=== PATIENT | female | born 1955 | race Caucasian/White ===

== ENCOUNTER → 2016-09-09 | Outpatient (CLI) | payer OTHER ==
[2016-09-09 11:05] LABS: Basophils # (A) 0.1 k/uL (0-0.2); Basophils % (A) 1 %; CH 30.3; CHCM 34.5; Eosinophils # (A) 0.3 k/uL (0-0.7); Eosinophils % (A) 4 %; HCT 42.2 % (34.0-46.0); HDW 2.59; HGB 14.1 gm/dL (11.4-16.0); Luc # (Auto) 0.18; Luc % (Auto) 3; Lymphocytes # (A) 2.4 k/uL (1.0-4.8); Lymphocytes % (A) 36 %; MCH 29.5 pg (25.0-35.0); MCHC 33.3 g/dL (31.0-37.0); MCV 88.5 fL (80.0-100.0); Mean Platelet Volume 6.9; Monocytes # (A) 0.4 k/uL (0-1.0); Monocytes % (A) 6 %; Neutrophils # (A) 3.3 k/uL (1.3-7.7); Neutrophils % (A) 50 %; RBC 4.77 m/uL (3.80-5.40); RDW 13.5 % (11.5-15.5); WBC 6.6 k/uL (3.8-10.6); WBC (Perox) 6.61
[2016-09-09 11:26] LABS: ALT 23 U/L (9-52); AST 21 U/L (14-36); Alkaline Phosphatase 72 U/L (38-126); Anion Gap 7 mmol/L; Blood Urea Nitrogen 17 mg/dL (7-17); Calcium 9.3 mg/dL (8.4-10.2); Carbon Dioxide 27 mmol/L (22-30); Chloride 108 mmol/L (98-107); Cholesterol 217 mg/dL (<200); Glucose 96 mg/dL (74-99); HDL Cholesterol 50 mg/dL (40-60); Non-African American GFR(MDRD) >60 (>60 ml/min/1.73 sqM); Potassium 3.8 mmol/L (3.5-5.1); Sodium 142 mmol/L (137-145); Total Bilirubin 0.4 mg/dL (0.2-1.3); Total Protein 6.7 g/dL (6.3-8.2); Triglycerides 66 mg/dL (<150)
== END | disposition home or self-care (01) ==
LOC: LABWHC1 10:19
PROVIDERS: ATTEND Family Medicine
DX: J01.90 Acute sinusitis, unspecified (principal); E03.9 Hypothyroidism, unspecified
CPT/HCPCS: 36415; 80053; 80061; 84439; 84443; 84481; 85025

== ENCOUNTER → 2016-11-21 | Outpatient (CLI) | payer OTHER ==
--- NOTE | 2016-11-21 08:11 | CT ---
EXAMINATION TYPE: CT abdomen pelvis wo con DATE OF EXAM: 11/21/2016 COMPARISON: Previous study dated 02/16/2015. HISTORY: Rt flank pain, UTI CT DLP: 946 mGycm Automated exposure control for dose reduction was used. FINDINGS: There are multiple, stable, noncalcified pulmonary nodules at the lung bases. Stability ove r 2 years suggests a benign etiology. There is no pleural or pericardial fluid. The heart is not enla rged. There is a small hiatal hernia. Within the abdomen, the liver, spleen and gallbladder are normal. There is fullness in the adrenal gl ands to there is no adrenal mass. There is no evidence of hydronephrosis or nephrolithiasis. The pancreas is unremarkable. There is mild atheromatous calcification of the aorta and iliac vessels. There is no significant retr operitoneal, iliac or inguinal adenopathy. There is mild bladder wall thickening. The uterus is unremarkable. The ovaries are not visualized with certainty. There is no significant diverticular change and there is no radiographic evidence of diverticulitis. The appendix is normal. Small bowel loops are normal. There is no free fluid and no free air identified. There are degenerative changes in the hips. There is facet arthropathy in the lower lumbar facets. Th ere is minimal hypertrophic spondylosis in the lower dorsal spine. No bony destructive lesion is seen . IMPRESSION: 1. SMALL HIATAL HERNIA. 2. MULTIPLE, STABLE PULMONARY NODULES. 3. MILD DEGENERATIVE CHANGE IN THE HIPS AND SPINE. 4. MILD THICKENING OF THE BLADDER WALL.
== END | disposition home or self-care (01) ==
LOC: RADCTMAIN 06:52
PROVIDERS: ATTEND Family Medicine
DX: K44.9 Diaphragmatic hernia without obstruction or gangrene (principal); K82.8 Other specified diseases of gallbladder; Z88.2 Allergy status to sulfonamides; Z88.1 Allergy status to other antibiotic agents; Z88.8 Allergy status to other drugs, medicaments and biological substances
CPT/HCPCS: 74176

== ENCOUNTER → 2018-08-05 | Outpatient (CLI) | payer OTHER ==
[2018-08-05 13:36] LABS: Basophils # (A) 0.1 k/uL (0-0.2); Basophils % (A) 1 %; Eosinophils # (A) 0.4 k/uL (0-0.7); Eosinophils % (A) 4 %; HCT 43.9 % (34.0-46.0); HGB 14.5 gm/dL (11.4-16.0); Lymphocytes # (A) 2.3 k/uL (1.0-4.8); Lymphocytes % (A) 25 %; MCH 29.8 pg (25.0-35.0); MCHC 33.1 g/dL (31.0-37.0); Mean Platelet Volume 7.1; Monocytes # (A) 0.4 k/uL (0-1.0); Monocytes % (A) 4 %; Neutrophils # (A) 6.1 k/uL (1.3-7.7); Neutrophils % (A) 65 %; Platelet Count 336 k/uL (150-450); RBC 4.88 m/uL (3.80-5.40); RDW 15.3 % (11.5-15.5); WBC 9.4 k/uL (3.8-10.6)
[2018-08-05 20:58] LABS: Albumin 4.4 g/dL (3.80-4.90); Albumin/Globulin Ratio 1.83 (1.60-3.17); Anion Gap 8.9 mmol/L (4.00-12.00); Calcium 9.4 mg/dL (8.7-10.3); Carbon Dioxide 29.1 mmol/L (21.6-31.8); Globulin 2.4 g/dL (1.6-3.3); LDL Cholesterol,Calculated 179.2 mg/dL (0.0-131.0); Potassium 4.5 mmol/L (3.5-5.5); Total Bilirubin 0.3 mg/dL (0.2-1.2); Total Protein 6.8 g/dL (6.2-8.2); VLDL Calculation 27.8 mg/dL (5.00-40.00)
[2018-08-05 21:07] LABS: T4, Free (Free Thyroxine) 1.3 ng/dL (0.80-1.80)
== END | disposition home or self-care (01) ==
LOC: LABWHC1 13:12
PROVIDERS: ATTEND Family Medicine
DX: Z00.00 Encounter for general adult medical examination without abnormal findings (principal); E03.9 Hypothyroidism, unspecified
CPT/HCPCS: 36415; 80053; 80061; 84439; 84443; 85025

== ENCOUNTER → 2018-11-17 | Outpatient (CLI) | payer OTHER ==
--- NOTE | 2018-11-17 11:54 | XR ---
EXAMINATION TYPE: XR elbow complete LT, XR forearm LT, XR wrist complete LT DATE OF EXAM: 11/17/2018 CLINICAL HISTORY: Fall injury 3 days ago with pain TECHNIQUE: Frontal, lateral and oblique images of the left wrist and elbow are obtained. Fourth scap hoid view left wrist. 2 views left forearm. COMPARISON: None FINDINGS: There is no acute fracture/dislocation evident in the left elbow. No abnormal fat pad sig ns are seen. The overlying soft tissue appears unremarkable. Images of the left forearm show no acute fracture or dislocation. Overlying soft tissue is unremarkab le. Images of the left wrist show no acute fracture or dislocation. Mild to moderate narrowing at base of first metacarpal with mild spurring is present. Overlying soft tissue is unremarkable. IMPRESSION: There is no acute fracture or dislocation in the left wrist, forearm, or elbow.
--- NOTE | 2018-11-17 11:55 | XR ---
EXAMINATION TYPE: XR femur LT DATE OF EXAM: 11/17/2018 CLINICAL HISTORY: Fall injury on Thursday with pain. TECHNIQUE: Two views of the left femur are obtained. COMPARISON: None FINDINGS: There is no acute fracture or dislocation seen in the left femur. Sclerotic focus distal l eft femur favors bone infarct. Mild to moderate tricompartment joint space loss and spurring left kne e is seen. Left hip joint appears within normal limits. Partial visualization of surgical change left tibia is noted. Overlying soft tissue is unremarkable. IMPRESSION: There is no acute fracture or dislocation in the left femur.
== END | disposition home or self-care (01) ==
LOC: RADXRMAIN 11:01
PROVIDERS: ATTEND Emergency Medicine
DX: S70.12XA Contusion of left thigh, initial encounter (principal); S50.12XA Contusion of left forearm, initial encounter

== ENCOUNTER → 2020-01-06 | Outpatient (CLI) | payer OTHER ==
--- NOTE | 2020-01-09 08:10 | CT ---
EXAMINATION TYPE: CT shoulder RT wo con DATE OF EXAM: 01/06/2020 COMPARISON: None HISTORY: right shoulder pain, no injury CT DLP: 269.[address] of the right shoulder with reconstruction imaging. TECHNIQUE: Unenhanced CT of the right shoulder was performed with bone and soft tissue window setting s submitted in the axial coronal and sagittal planes. At a separate workstation [id number] TR imaging was o btained. FINDINGS: I do not see evidence for fracture or dislocation. No evidence for subacromial impingement as there is a flat acromium. Minimal AC joint arthropathy. Glenohumeral joint space is well-preserve d. No obvious rotator cuff abnormality seen on CT. MRI is much more sensitive and specific to rotat or cuff pathology. No soft tissue masses appreciated. Visualized portions of the right lung demonst rate right apical scarring. IMPRESSION: 1. No significant abnormality of CT of the right shoulder. To exclude internal derangement I do recom mend MRI.
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
== END | disposition home or self-care (01) ==
LOC: RADCTMAIN 16:08
PROVIDERS: ATTEND Family Medicine
DX: M50.321 Other cervical disc degeneration at C4-C5 level (principal); M50.21 Other cervical disc displacement, high cervical region; M25.511 Pain in right shoulder; Z98.1 Arthrodesis status; Z88.6 Allergy status to analgesic agent
CPT/HCPCS: 72125

== ENCOUNTER 2022-07-26 13:51 | Inpatient (IN) | payer BC, MEDICARE ==
[2022-07-26] MEDS ORDERED: ALBUTEROL NEBULIZED 2.5 MG/3 ML INHALATION STA ×2 (14:05→16:19)
[2022-07-26] MEDS ORDERED: IPRATROPIUM 0.5 MG/2.5 ML NEBU INHALATION STA (14:05)
--- NOTE | 2022-07-26 14:06 | ED ---
SOB HPI - General Chief Complaint: Shortness of Breath Stated Complaint: ELIEL Time Seen by Provider: 07/26/22 14:05 Source: patient, RN notes reviewed, old records reviewed Mode of arrival: ambulatory Limitations: no limitations - History of Present Illness Initial Comments: This is a 66-year-old female to the emergency department today. She presents to day for evaluation of shortness of breath positive smoker who does continue to smoke history of COPD, she denies any prior admissions for COPD. Patient states her breathing is getting progressively worse for the plantar she can't do daily activities at home. She has significant short of breath after just taking a few steps. No fevers or chest pain. No significant swelling over lower extremity edema. Symptoms are progressively worsening over the last few days but increasing steroids at home MD Complaint: shortness of breath, cough -: days(s), week(s), month(s), year(s) Radiation: back Severity: severe Severity scale (1-10): 10 Consistency: constant Improves With: rest, bronchodilators, upright position Worsens With: exertion, movement, coughing, inspiration Known History Of: COPD Context: anxiety Associated Symptoms: cough, sputum production Treatments Prior to Arrival: bronchodilator - Related Data Home Medications Medication Instructions Recorded Confirmed Cyclobenzaprine [Flexeril] 10 mg PO HS PRN 02/24/14 07/26/22 Omeprazole [PriLOSEC] 20 mg PO DAILY 02/24/14 07/26/22 hydroCHLOROthiazide [Hydrodiuril] 25 mg PO DAILY 02/24/14 07/26/22 Acetaminophen [Tylenol Arthritis] 650 mg PO Q6H PRN 07/26/22 07/26/22 Albuterol Inhaler [Ventolin Hfa 1 - 2 puff INHALATION RT-Q6H PRN 07/26/22 07/26/22 Inhaler] Fexofenadine HCl [Cristina Allergy] 180 mg PO DAILY 07/26/22 07/26/22 Fluticasone/Umeclidin/Vilanter 1 puff INHALATION RT-DAILY 07/26/22 07/26/22 [Trelegy Ellipta 100-62.5-25] HYDROcodone/APAP 5-325MG [[place] 1 tab PO Q6HR PRN 07/26/22 07/26/22 5-325] Levothyroxine Sodium [Synthroid] 137 mcg PO DAILY 07/26/22 07/26/22 diphenhydrAMINE HCL [Benadryl] 25 mg PO Q6H PRN 07/26/22 07/26/22 predniSONE See Taper PO DIRECTED 07/26/22 07/26/22 Allergies Allergy/AdvReac Type Severity Reaction Status Date / Time erythromycin base Allergy Unknown Verified 02/16/15 02:48 [Erythromycin Base] hydrocodone bitartrate Allergy Itching Verified 07/26/22 16:09 [From Vicodin] hydroxychloroquine Allergy Verified 07/26/22 16:15 [From Plaquenil] ibuprofen [From Motrin] Allergy Verified 07/26/22 16:09 naproxen Allergy Verified 07/26/22 16:09 nitrofurantoin Allergy Rash/Hives Verified 07/26/22 13:57 [From Macrobid] sulfamethoxazole Allergy Rash/Hives Verified 07/26/22 16:09 [From Bactrim] trimethoprim [From Bactrim] Allergy Rash/Hives Verified 07/26/22 16:09 anti-inflamatories Allergy Unknown Uncoded 02/16/15 02:48 Review of Systems ROS Statement: Those systems with pertinent positive or pertinent negative responses have been documented in the HPI. ROS Other: All systems not noted in ROS Statement are negative. Past Medical History Past Medical History: COPD, GERD/Reflux, Hypertension, Thyroid Disorder History of Any Multi-Drug Resistant Organisms: None Reported Past Surgical History: Section, Orthopedic Surgery, Tubal Ligation Additional Past Surgical History / Comment(s): neck surgery C5-C6 Past Psychological History: No Psychological Hx Reported Past Alcohol Use History: Occasional Past Drug Use History: None Reported General Exam Limitations: no limitations General appearance: alert, in no apparent distress, anxious Head exam: Present: atraumatic, normocephalic, normal inspection Eye exam: Present: normal appearance, PERRL, EOMI. Absent: scleral icterus, conjunctival injection, periorbital swelling ENT exam: Present: normal exam, mucous membranes moist Neck exam: Present: normal inspection. Absent: tenderness, meningismus, lymphadenopathy Respiratory exam: Present: normal lung sounds bilaterally, respiratory distress, accessory muscle use, decreased breath sounds, prolonged expiratory. Absent: wheezes, rales, rhonchi, stridor Cardiovascular Exam: Present: normal rhythm, tachycardia, normal heart sounds. Absent: systolic murmur, diastolic murmur, rubs, gallop, clicks GI/Abdominal exam: Present: soft, normal bowel sounds. Absent: distended, tenderness, guarding, rebound, rigid Extremities exam: Present: normal inspection, full ROM, normal capillary refill. Absent: tenderness, pedal edema, joint swelling, calf tenderness Back exam: Present: normal inspection Neurological exam: Present: alert, oriented X3, CN II-XII intact Psychiatric exam: Present: normal affect, normal mood Skin exam: Present: warm, dry, intact, normal color. Absent: rash Course Vital Signs 07/26/22 07/26/22 07/26/22 13:54 14:19 14:23 Temperature 97.3 F L 98.2 F Pulse Rate 120 H 103 H Respiratory 36 H 24 22 Rate Blood Pressure 159/81 173/94 O2 Sat by Pulse 98 97 Oximetry 07/26/22 07/26/22 07/26/22 14:31 14:49 15:00 Temperature Pulse Rate 103 H 112 H 111 H Respiratory 22 Rate Blood Pressure 147/87 O2 Sat by Pulse 95 Oximetry 07/26/22 16:00 Temperature Pulse Rate 101 H Respiratory 18 Rate Blood Pressure 160/92 O2 Sat by Pulse 94 L Oximetry - Reevaluation(s) Reevaluation #1: 07/26/22 16:32 Medical records reviewed Reevaluation #2: 07/26/22 16:32 Patient informed results and questions are answered Reevaluation #3: 07/26/22 16:32 Patient has no improvement here in the ER, states she does do moderately well with rest airway still but any activity even here in the ER causes her oxygenation is a drop in the mid to high 80s Reevaluation #4: 07/26/22 16:32 Was pt. sent in by a medical professional or institution? @ -no patient does present by EMS Did you speak to anyone other than the patient for history? @ -EMS and paitents daughter at beside Did you review nursing and triage notes? @ -agree Were old charts reviewed? @ -prior admissions and ER evaluaions are reviewed Differential Diagnosis? @ -weakness, falls EKG interpreted by me (3pts min.)? @ -no X-rays interpreted by me (1pt min.)? @ -yes CT interpreted by me (1pt min.)? @ -no U/S interpreted by me (1pt. min.)? @ -no What testing was considered but not performed? (CT, X-rays, U/S, labs)? Why? @ -no What meds were considered but not given? Why? @ -no patient with no current complaints Did you discuss the management of the patient with other professionals? @ -no Did you reconcile home meds? @ -no Was smoking cessation discussed for >3mins.? @ -yes Was critical care preformed (if so, how long)? @ -no Were there social determinants of health that impacted care today? How? (Homelessness, low income, unemployed, alcoholism, drug addiction, transportation, low edu. Level, literacy, decrease access to med. care, penitentiary, rehab)? @ -no Was there de-escalation of care discussed even if they declined? (Discuss DNR or withdrawal of care, Hospice)? @ -no What co-morbidities impacted this encounter? (DM, HTN, Smoking, COPD, CAD, Can cer, CVA, Hep., AIDS, mental health diagnosis, sleep apnea, morbid obesity)? @ -smoking, copd Was patient admitted / discharged? @ -admit Undiagnosed new problem with uncertain prognosis? @ -copd exacerbation Drug Therapy requiring intensive monitoring for toxicity (Heparin, Nitro, Insulin, Cardizem)? @ -no Were any procedures done? @ -no Diagnosis/symptom? @ -COPDhypoxia Acute, or Chronic, or Acute on Chronic? @ -acute Uncomplicated (without systemic symptoms) or Complicated (systemic symptoms)? @ -uncompicated Side effects of treatment? @ -none Exacerbation, Progression, or Severe Exacerbation] @ -no Poses a threat to life or bodily function? @ -yes tate w hypoxia Reevaluation #5: 07/26/22 16:35 Differential Dyspnea: Coronary syndrome, arrhythmia, tamponade, asthma, COPD, pulmonary embolism, pneumonia, pneumothorax, pulmonary effusion, anaphylaxis, diabetic ketoacidosis, flailed chest, pulmonary contusion, diaphragmatic rupture, anemia, neuromuscular, this is not meant to be an all-inclusive list. - Consultations Consultation #1: Spoke with admitting physicians agreeable with this patient Cheng who agrees to admit this paitnet Medical Decision Making - Medical Decision Making 66 female to the emergency department for evaluation, patient will be admitted for severe COPD exacerbation with exertional dyspnea and hypoxia. Patient be admitted for pulmonology evaluation and repeated breathing treatments, smoking cessation - Lab Data Result diagrams: 07/26/22 14:14 07/26/22 14:14 Lab Results 07/26/22 07/26/22 07/26/22 Range/Units 14:14 14:14 14:14 WBC 11.3 H (3.8-10.6) k/uL RBC 4.94 (3.80-5.40) m/uL Hgb 15.0 (11.4-16.0) gm/dL Hct 44.4 (34.0-46.0) % MCV 90.0 (80.0-100.0) fL MCH 30.4 (25.0-35.0) pg MCHC 33.7 (31.0-37.0) g/dL RDW 14.9 (11.5-15.5) % Plt Count 439 (150-450) k/uL MPV 7.4 Neutrophils % 77 % Lymphocytes % 15 % Monocytes % 5 % Eosinophils % 2 % Basophils % 0 % Neutrophils # 8.8 H (1.3-7.7) k/uL Lymphocytes # 1.7 (1.0-4.8) k/uL Monocytes # 0.5 (0-1.0) k/uL Eosinophils # 0.2 (0-0.7) k/uL Basophils # 0.0 (0-0.2) k/uL PT 9.5 (9.0-12.0) sec INR 0.9 (<1.2) APTT 22.0 (22.0-30.0) sec Sodium 139 (137-145) mmol/L Potassium 3.7 (3.5-5.1) mmol/L Chloride 101 (98-107) mmol/L Carbon Dioxide 28 (22-30) mmol/L Anion Gap 10 mmol/L BUN 19 H (7-17) mg/dL Creatinine 0.66 (0.52-1.04) mg/dL Est GFR (CKD-EPI)AfAm >90 (>60 ml/min/1.73 sqM) Est GFR (CKD-EPI)NonAf >90 (>60 ml/min/1.73 sqM) Glucose 118 H (74-99) mg/dL Plasma Lactic Acid Kemal (0.7-2.0) mmol/L Calcium 9.7 (8.4-10.2) mg/dL Magnesium 1.6 (1.6-2.3) mg/dL Total Bilirubin 0.4 (0.2-1.3) mg/dL AST 24 (14-36) U/L ALT 28 (4-34) U/L Alkaline Phosphatase 93 (38-126) U/L NT-Pro-B Natriuret Pep pg/mL Total Protein 7.5 (6.3-8.2) g/dL Albumin 4.2 (3.5-5.0) g/dL 07/26/22 07/26/22 Range/Units 14:14 14:14 WBC (3.8-10.6) k/uL RBC (3.80-5.40) m/uL Hgb (11.4-16.0) gm/dL Hct (34.0-46.0) % MCV (80.0-100.0) fL MCH (25.0-35.0) pg MCHC (31.0-37.0) g/dL RDW (11.5-15.5) % Plt Count (150-450) k/uL MPV Neutrophils % % Lymphocytes % % Monocytes % % Eosinophils % % Basophils % % Neutrophils # (1.3-7.7) k/uL Lymphocytes # (1.0-4.8) k/uL Monocytes # (0-1.0) k/uL Eosinophils # (0-0.7) k/uL Basophils # (0-0.2) k/uL PT (9.0-12.0) sec INR (<1.2) APTT (22.0-30.0) sec Sodium (137-145) mmol/L Potassium (3.5-5.1) mmol/L Chloride (98-107) mmol/L Carbon Dioxide (22-30) mmol/L Anion Gap mmol/L BUN (7-17) mg/dL Creatinine (0.52-1.04) mg/dL Est GFR (CKD-EPI)AfAm (>60 ml/min/1.73 sqM) Est GFR (CKD-EPI)NonAf (>60 ml/min/1.73 sqM) Glucose (74-99) mg/dL Plasma Lactic Acid Kem[place] 1.7 (0.7-2.0) mmol/L Calcium (8.4-10.2) mg/dL Magnesium (1.6-2.3) mg/dL Total Bilirubin (0.2-1.3) mg/dL AST (14-36) U/L ALT (4-34) U/L Alkaline Phosphatase (38-126) U/L NT-Pro-B Natriuret Pep 151 pg/mL Total Protein (6.3-8.2) g/dL Albumin (3.5-5.0) g/dL - EKG Data -: EKG Interpreted by Me (EKG is sinus tachycardia 108 MO 148 QRS 90 QTC 377) - Radiology Data Radiology results: report reviewed (Chest x-rays negative for acute disease), image reviewed Critical Care Time Critical Care Time: Yes Total Critical Care Time: 31 Disposition Clinical Impression: Acute exacerbation of chronic obstructive pulmonary disease, Asthma with acute exacerbation, Hypoxia Disposition: ADMITTED IP TO THIS HOSP Condition: Fair Is patient prescribed a controlled substance at d/c from ED?: No Referrals: Faheem Roberts Jr, [Primary Care Provider] - 1-2 days Time of Disposition: 16:20
--- NOTE | 2022-07-26 14:34 | XR ---
EXAMINATION TYPE: XR chest 1V portable DATE OF EXAM: 07/26/2022 COMPARISON: 05/15/2022 HISTORY: Shortness of breath TECHNIQUE: Single frontal view of the chest is obtained. FINDINGS: There is no focal air space opacity, pleural effusion, or pneumothorax seen. The cardiac silhouette size is within normal limits. The osseous structures are intact. IMPRESSION: No acute process.
[2022-07-26 14:40] LABS: Basophils % (A) 0 %; Eosinophils # (A) 0.2 k/uL (0-0.7); Eosinophils % (A) 2 %; HCT 44.4 % (34.0-46.0); Lymphocytes # (A) 1.7 k/uL (1.0-4.8); Lymphocytes % (A) 15 %; MCH 30.4 pg (25.0-35.0); MCHC 33.7 g/dL (31.0-37.0); Mean Platelet Volume 7.4; Monocytes # (A) 0.5 k/uL (0-1.0); Monocytes % (A) 5 %; Neutrophils # (A) 8.8 k/uL (1.3-7.7); Neutrophils % (A) 77 %; Platelet Count 439 k/uL (150-450); RBC 4.94 m/uL (3.80-5.40); RDW 14.9 % (11.5-15.5); WBC 11.3 k/uL (3.8-10.6)
[2022-07-26 14:53] LABS: ALT 28 U/L (4-34); AST 24 U/L (14-36); African American GFR (CKD) >90 (>60 ml/min/1.73 sqM); Albumin 4.2 g/dL (3.5-5.0); Alkaline Phosphatase 93 U/L (38-126); Anion Gap 10 mmol/L; Blood Urea Nitrogen 19 mg/dL (7-17); Calcium 9.7 mg/dL (8.4-10.2); Carbon Dioxide 28 mmol/L (22-30); Chloride 101 mmol/L (98-107); Glucose 118 mg/dL (74-99); Magnesium 1.6 mg/dL (1.6-2.3); Non-African American GFR(CKD) >90 (>60 ml/min/1.73 sqM); Potassium 3.7 mmol/L (3.5-5.1); Sodium 139 mmol/L (137-145); Total Bilirubin 0.4 mg/dL (0.2-1.3); Total Protein 7.5 g/dL (6.3-8.2)
[2022-07-26 14:55] LABS: INR 0.9 (<1.2); Prothrombin Time 9.5 sec (9.0-12.0)
[2022-07-26] MEDS ORDERED: NALOXONE 0.4 MG/ML 1 ML VIAL IVP PRN (15:56)
[2022-07-26] MEDS ORDERED: ACETAMINOPHEN TAB 325 MG TAB PO PRN (16:16)
[2022-07-26] MEDS ORDERED: methylPREDNISolone SOD SUCCI 125 MG/2 ML VIAL IV STA (16:16)
[2022-07-26] MEDS ORDERED: HYDROcodone/APAP 5-325MG 1 EACH TAB PO PRN (18:46)
[2022-07-26] MEDS: ALBUTEROL NEBULIZED 2.5 MG/3 ML INHALATION SCH (20:18)
[2022-07-26] MEDS: methylPREDNISolone SOD SUCCI 125 MG/2 ML VIAL IV SCH (23:32)
[2022-07-27] MEDS: CYCLOBENZAPRINE 10 MG TAB PO PRN ×2 (03:09→22:20)
[2022-07-27] MEDS: methylPREDNISolone SOD SUCCI 125 MG/2 ML VIAL IV SCH ×3 (05:53→18:03)
[2022-07-27] MEDS: LEVOTHYROXINE 137 MCG TAB PO SCH (05:54)
--- NOTE | 2022-07-27 07:20 | XR ---
EXAMINATION TYPE: XR chest 2V DATE OF EXAM: 07/27/2022 COMPARISON: Chest x-ray from yesterday HISTORY: Hypoxia. TECHNIQUE: Frontal and lateral views of the chest are obtained. FINDINGS: There is mild chronic parenchymal change without suspicious focal air space opacity, pleur al effusion, or pneumothorax seen. The cardiac silhouette size is stable and within normal limits. A nterior fusion plate in the lower cervical spine is redemonstrated. IMPRESSION: No acute cardiopulmonary process. No significant change from one day earlier.
[2022-07-27] MEDS: ALBUTEROL NEBULIZED 2.5 MG/3 ML INHALATION SCH ×4 (07:38→20:24)
[2022-07-27] MEDS: IPRATROPIUM 0.5 MG/2.5 ML NEBU INHALATION SCH ×4 (07:39→20:24)
[2022-07-27] MEDS ORDERED: SYMBICORT 80-4.5 MCG INHALER INHALATION SCH (08:00)
[2022-07-27] MEDS: hydroCHLOROthiazide 25 MG TAB PO SCH (08:45)
[2022-07-27] MEDS: PANTOPRAZOLE 40 MG TABLET PO SCH (08:45)
[2022-07-27 09:20] LABS: Basophils # (A) 0.01 X 10*3/uL (0.00-0.10); Basophils % (A) 0.1 %; Eosinophils # (A) 0 X 10*3/uL (0.04-0.35); Eosinophils % (A) 0 %; HCT 41.7 % (37.2-46.3); HGB 14.1 g/dL (12.0-15.0); Immature Grans, Automated 1.7 %; Lymphocytes # (A) 1.11 X 10*3/uL (0.90-5.00); Lymphocytes % (A) 6.5 %; MCH 29.7 pg (27.0-32.0); MCHC 33.8 g/dL (32.0-37.0); MCV 87.8 fL (80.0-97.0); Mean Platelet Volume 9.5 fL (9.5-12.2); Monocytes # (A) 0.32 X 10*3/uL (0.20-1.00); Monocytes % (A) 1.9 %; NRBC Per 100 WBC 0 /100 WBCS (0.0-0.0); Neutrophils # (A) 15.24 X 10*3/uL (1.80-7.70); Neutrophils % (A) 89.8 %; Platelet Count 462 X 10*3/uL (140-440); RBC 4.75 X 10*6/uL (4.10-5.20); RDW 15.8 % (11.5-14.5); WBC 16.97 X 10*3/uL (4.50-10.00)
[2022-07-27 09:23] LABS: African American GFR (CKD) 89.8 (60.0-200.0); Anion Gap 14.8 mmol/L (10.00-18.00); BUN/Creat Ratio 23.01 Ratio (12.00-20.00); Blood Urea Nitrogen 18.5 mg/dL (9.0-27.0); Magnesium 1.6 mg/dL (1.5-2.4); Non-African American GFR(CKD) 77.4 (60.0-200.0); Potassium 4.1 mmol/L (3.5-5.5)
[2022-07-27] MEDS ORDERED: diphenhydrAMINE 25 MG CAP PO PRN (11:32)
--- NOTE | 2022-07-27 12:07 | P.HPIM ---
History of Present Illness H&P Date: 07/27/22 Chief Complaint: Shortness of breath Maddi is a pleasant 66-year-old white female. She's been in the office complaining of increasing shortness of breath over the past several weeks since there is "spraying something at work" that trigger her respiratory distress. She has a known history of COPD, smoker, and asthma. She ordinarily sees Dr. Pretty Roberts for these. She ports being in my office seeing . currently receiving a steroid pack and some other medications just several days ago. She reports her shortness of breath had worsened and she came emergency room last night. Today she is receiving updraft. She complains of shortness of breath with any sort of exertion. Denies any chest pains, nausea, vomiting. She does complain of her chronic pain which she takes her home medications for. Vital signs show her mildly tachycardic, blood pressure slightly elevated. Labs show leukocytosis with a left shift. INR is normal. Blood chemistries normal. Inf luenza A and coronavirus screens negative. Review of Systems All systems: negative Past Medical History Past Medical History: COPD, GERD/Reflux, Hypertension, Thyroid Disorder History of Any Multi-Drug Resistant Organisms: None Reported Past Surgical History: Section, Orthopedic Surgery, Tubal Ligation Additional Past Surgical History / Comment(s): neck surgery C5-C6, bilat knee, left shoulder, sinus sx x2, left wrist Past Anesthesia/Blood Transfusion Reactions: Postoperative Nausea & Vomiting (PONV) Past Psychological History: No Psychological Hx Reported Smoking Status: Current every day smoker Past Alcohol Use History: Occasional Past Drug Use History: None Reported - Past Family History Mother Family Medical History: COPD Medications and Allergies Home Medications Medication Instructions Recorded Confirmed Type Cyclobenzaprine [Flexeril] 10 mg PO HS PRN 02/24/14 07/26/22 History Omeprazole [PriLOSEC] 20 mg PO DAILY 02/24/14 07/26/22 History hydroCHLOROthiazide [Hydrodiuril] 25 mg PO DAILY 02/24/14 07/26/22 History Acetaminophen [Tylenol Arthritis] 650 mg PO Q6H PRN 07/26/22 07/26/22 History Albuterol Inhaler [Ventolin Hfa 1 - 2 puff INHALATION RT-Q6H PRN 07/26/22 07/26/22 History Inhaler] Fexofenadine HCl [Cristina Allergy] 180 mg PO DAILY 07/26/22 07/26/22 History Fluticasone/Umeclidin/Vilanter 1 puff INHALATION RT-DAILY 07/26/22 07/26/22 History [Trelegy Ellipta 100-62.5-25] HYDROcodone/APAP 5-325MG [[place] 1 tab PO Q6HR PRN 07/26/22 07/26/22 History 5-325] Levothyroxine Sodium [Synthroid] 137 mcg PO DAILY 07/26/22 07/26/22 History diphenhydrAMINE HCL [Benadryl] 25 mg PO Q6H PRN 07/26/22 07/26/22 History predniSONE See Taper PO DIRECTED 07/26/22 07/26/22 History Allergies Allergy/AdvReac Type Severity Reaction Status Date / Time erythromycin base Allergy Unknown Verified 02/16/15 02:48 [Erythromycin Base] hydrocodone bitartrate Allergy Itching Verified 07/26/22 16:09 [From Vicodin] hydroxychloroquine Allergy Verified 07/26/22 16:15 [From Plaquenil] ibuprofen [From Motrin] Allergy Verified 07/26/22 16:09 naproxen Allergy Verified 07/26/22 16:09 nitrofurantoin Allergy Rash/Hives Verified 07/26/22 13:57 [From Macrobid] sulfamethoxazole Allergy Rash/Hives Verified 07/26/22 16:09 [From Bactrim] trimethoprim [From Bactrim] Allergy Rash/Hives Verified 07/26/22 16:09 anti-inflamatories Allergy Unknown Uncoded 02/16/15 02:48 Physical Exam Vitals: Vital Signs Temp Pulse Pulse Pulse Resp BP BP 07/27/22 11:18 108 H 07/27/22 10:55 104 H 07/27/22 08:00 104 H 07/27/22 07:45 103 H 07/27/22 07:14 97.8 F 106 H 18 07/27/22 02:02 97.8 F 103 H 20 148/89 07/26/22 20:34 110 H 18 07/26/22 20:20 07/26/22 20:18 112 H 18 07/26/22 19:55 103 H 20 07/26/22 18:24 97.7 F 109 H 20 165/86 07/26/22 17:56 103 H 18 07/26/22 17:04 111 H 07/26/22 17:00 106 H 17 150/89 07/26/22 16:52 101 H 07/26/22 16:00 101 H 18 160/92 07/26/22 15:00 111 H 22 147/87 07/26/22 14:49 112 H 07/26/22 14:31 103 H 07/26/22 14:23 98.2 F 103 H 22 173/94 07/26/22 14:19 24 07/26/22 13:54 97.3 F L 120 H 36 H 159/81 BP Pulse Ox 07/27/22 11:18 07/27/22 10:55 07/27/22 08:00 07/27/22 07:45 07/27/22 07:14 171/93 94 L 07/27/22 02:02 95 07/26/22 20:34 07/26/22 20:20 95 07/26/22 20:18 07/26/22 19:55 07/26/22 18:24 96 07/26/22 17:56 94 L 07/26/22 17:04 07/26/22 17:00 94 L 07/26/22 16:52 07/26/22 16:00 94 L 07/26/22 15:00 95 07/26/22 14:49 07/26/22 14:31 07/26/22 14:23 97 07/26/22 14:19 07/26/22 13:54 98 Intake and Output 07/26/22 07/27/22 07/27/22 22:59 06:59 14:59 Intake Total 950 Balance 950 Intake: Oral 950 Other: Voiding Method Toilet # Voids 1 Weight 80.286 kg GENERAL: female in minimal distress due to shortness of breath. She has a Ventimask for albuterol updrafts and placed this time. HEAD: Atraumatic, normocephalic. EYES: Pupils equal round and reactive to light, extraocular movements intact, sclera anicteric, conjunctiva are normal. ENT:nares patent, oropharynx clear without exudates. Moist mucous membranes. NECK: Normal range of motion, supple without lymphadenopathy or JVD, no thy romegaly LUNGS coarse breath sounds bilaterally with loud rhonchi noted in all lung lakhani. There is no audible wheezes, no rales HEART: Regular rate and rhythm without murmurs, rubs or gallops.S1S2 Normal, difficult to auscultate due to significant lung noise ABDOMEN: Soft, nontender, normoactive bowel sounds. No guarding, no rebound. No masses appreciated. EXTREMITIES: Normal range of motion, +1 pitting edema No clubbing or cyanosis. NEUROLOGICAL: Cranial nerves II through XII grossly intact. Normal speech, normal gait. PSYCH: Normal mood, normal affect. SKIN: Warm, Dry, normal turgor, no rashes or lesions noted. Results CBC & Chem 7: 07/27/22 06:31 07/27/22 06:31 Labs: EKG reviewed showing sinus tachycardiaAbnormal Lab Results - Last 24 Hours (Table) 07/26/22 07/26/22 07/27/22 Range/Units 14:14 14:14 06:31 WBC 11.3 H 16.97 H (3.8-10.6) k/uL RDW 15.8 H (11.5-14.5) % Plt Count 462 H (140-440) X 10*3/uL Immature Gran # 0.29 H (0.00-0.04) X 10*3/uL Neutrophils # 8.8 H 15.24 H (1.3-7.7) k/uL Eosinophils # 0 L (0.04-0.35) X 10*3/uL BUN 19 H (7-17) mg/dL BUN/Creatinine Ratio (12.00-20.00) Ratio Glucose 118 H (74-99) mg/dL 07/27/22 Range/Units 06:31 WBC (3.8-10.6) k/uL RDW (11.5-14.5) % Plt Count (140-440) X 10*3/uL Immature Gran # (0.00-0.04) X 10*3/uL Neutrophils # (1.3-7.7) k/uL Eosinophils # (0.04-0.35) X 10*3/uL BUN (7-17) mg/dL BUN/Creatinine Ratio 23.01 H (12.00-20.00) Ratio Glucose 156 H (74-99) mg/dL Chest x-ray: report reviewed, image reviewed Thrombosis Risk Factor Assmnt - DVT/VTE Prophylaxis DVT/VTE Prophylaxis: Pharmacologic Prophylaxis ordered - Choose All That Apply Each Factor Represents 1 point: Abnormal pulmonary function (COPD) Other Risk Factors: Yes Each Risk Factor Represents 2 Points: Age 61-74 years Other congenital or acquired thrombophilia - If yes, enter type in comment: No Thrombosis Risk Factor Assessment Total Risk Factor Score: 3 Thrombosis Risk Factor Assessment Level: Moderate Risk Assessment and Plan (1) Acute and chronic respiratory failure with hypoxia Current Visit: Yes Status: Acute Code(s): J96.21 - ACUTE AND CHRONIC RESPIRATORY FAILURE WITH HYPOXIA SNOMED Code(s): 00356573 (2) Essential (primary) hypertension Current Visit: Yes Status: Acute Code(s): I10 - ESSENTIAL (PRIMARY) HYPERTENSION SNOMED Code(s): 93203745 (3) Acquired hypothyroidism Current Visit: Yes Status: Acute Code(s): E03.9 - HYPOTHYROIDISM, UN SPECIFIED SNOMED Code(s): 719451956 (4) Shoulder pain Current Visit: Yes Status: Acute Code(s): M25.519 - PAIN IN UNSPECIFIED SHOULDER SNOMED Code(s): 99211669 (5) Acute exacerbation of chronic obstructive pulmonary disease Current Visit: Yes Status: Acute Code(s): J44.1 - CHRONIC OBSTRUCTIVE PULMONARY DISEASE W (ACUTE) EXACERBATION SNOMED Code(s): 224425400 (6) Asthma with acute exacerbation Current Visit: Yes Status: Acute Code(s): J45.901 - UNSPECIFIED ASTHMA WITH (ACUTE) EXACERBATION SNOMED Code(s): 223352603 Plan: I will consult pulmonology, we'll reorder home medications. Continue her on Solu-Medrol. Repeat labs in a.m., reevaluate her in the next 24 hours.
--- NOTE | 2022-07-27 12:11 | P.CNPUL ---
History of Present Illness Consult date: 07/27/22 Reason for consult: dyspnea History of present illness: 66-year-old female patient, presented with worsening shortness of breath. I have seen this patient for pulmonary issues back in 2015. I haven't seen her since. The patient has history of chronic smoker and she smokes one pack of cigarettes a day. She had a Covid 19 infection back in May 2022. She was given hydrochloroquine and paxlovid by the primary care physician. Subsequen tly, the patient was given a prednisone burst taper by the primary care physician. For now, she is having exertional dyspnea, and the patient is short of breath with limited amount of activity. She has some cough. Wheezing. Exertional dyspnea. Does chest pain. No swelling lower extremities. Chest x- ray was consistent with COPD. She has limited on Trelegy Ellipta on outpatient basis and albuterol rescue inhaler.The white cell count is at 16.9, he was 14.1 and a platelet count is 462. Normal coagulation profile. Normal electrolytes, normal renal function, Covid 19 testing is negative, influenza screen was negative. She is currently on room air with a pulse ox of 94%. She works as a nurse at [employer]. Occupational exposure to any chemicals or fumes or respiratory irritants. No history of childhood asthma. Review of Systems Constitutional: Reports fatigue, Reports weakness Eyes: denies as per HPI, denies blurred vision, denies bulging eye, denies decreased vision, denies diplopia, denies discharge, denies dry eye, denies irritation, denies itching, denies pain, denies photophobia, denies loss of peripheral vision, denies loss of vision, denies tunnel vision/blind spots Ears: deny: decreased hearing, ear discharge, earache, tinnitus Ears, nose, mouth and throat: Reports as per HPI Breasts: absent: as per HPI, change in shape, gynecomastia, masses, nipple discharge, pain, skin changes, swelling Cardiovascular: Reports decreased exercise tolerance, Reports dyspnea on exertion Respiratory: Reports cough, Reports dyspnea, Reports wheezing Gastrointestinal: Reports as per HPI Genitourinary: Reports as per HPI Menstruation: Reports as per HPI Musculoskeletal: Reports as per HPI Musculoskeletal: absent: ankle pain, ankle stiffness, ankle swelling Integumentary: Reports as per HPI Neurological: Reports as per HPI Psychiatric: Reports as per HPI Endocrine: Reports as per HPI Hematologic/Lymphatic: Reports as per HPI Allergic/Immunologic: Reports as per HPI Past Medical History Past Medical History: COPD, GERD/Reflux, Hypertension, Thyroid Disorder History of Any Multi-Drug Resistant Organisms: None Reported Past Surgical History: Section, Orthopedic Surgery, Tubal Ligation Additional Past Surgical History / Comment(s): neck surgery C5-C6, bilat knee, left shoulder, sinus sx x2, left wrist Past Anesthesia/Blood Transfusion Reactions: Postoperative Nausea & Vomiting (PONV) Past Psychological History: No Psychological Hx Reported Smoking Status: Current every day smoker Past Alcohol Use History: Occasional Past Drug Use History: None Reported - Past Family History Mother Family Medical History: COPD Medications and Allergies Home Medications Medication Instructions Recorded Confirmed Type Cyclobenzaprine [Flexeril] 10 mg PO HS PRN 02/24/14 07/26/22 History Omeprazole [PriLOSEC] 20 mg PO DAILY 02/24/14 07/26/22 History hydroCHLOROthiazide [Hydrodiuril] 25 mg PO DAILY 02/24/14 07/26/22 History Acetaminophen [Tylenol Arthritis] 650 mg PO Q6H PRN 07/26/22 07/26/22 History Albuterol Inhaler [Ventolin Hfa 1 - 2 puff INHALATION RT-Q6H PRN 07/26/22 07/26/22 History Inhaler] Fexofenadine HCl [Cristina Allergy] 180 mg PO DAILY 07/26/22 07/26/22 History Fluticasone/Umeclidin/Vilanter 1 puff INHALATION RT-DAILY 07/26/22 07/26/22 History [Trelegy Ellipta 100-62.5-25] HYDROcodone/APAP 5-325MG [[place] 1 tab PO Q6HR PRN 07/26/22 07/26/22 History 5-325] Levothyroxine Sodium [Synthroid] 137 mcg PO DAILY 07/26/22 07/26/22 History diphenhydrAMINE HCL [Benadryl] 25 mg PO Q6H PRN 07/26/22 07/26/22 History predniSONE See Taper PO DIRECTED 07/26/22 07/26/22 History Allergies Allergy/AdvReac Type Severity Reaction Status Date / Time erythromycin base Allergy Unknown Verified 02/16/15 02:48 [Erythromycin Base] hydrocodone bitartrate Allergy Itching Verified 07/26/22 16:09 [From Vicodin] hydroxychloroquine Allergy Verified 07/26/22 16:15 [From Plaquenil] ibuprofen [From Motrin] Allergy Verified 07/26/22 16:09 naproxen Allergy Verified 07/26/22 16:09 nitrofurantoin Allergy Rash/Hives Verified 07/26/22 13:57 [From Macrobid] sulfamethoxazole Allergy Rash/Hives Verified 07/26/22 16:09 [From Bactrim] trimethoprim [From Bactrim] Allergy Rash/Hives Verified 07/26/22 16:09 anti-inflamatories Allergy Unknown Uncoded 02/16/15 02:48 Physical Exam Vitals: Vital Signs Temp Pulse Pulse Pulse Resp BP BP 07/27/22 11:18 108 H 07/27/22 10:55 104 H 07/27/22 08:00 104 H 07/27/22 07:45 103 H 07/27/22 07:14 97.8 F 106 H 18 07/27/22 02:02 97.8 F 103 H 20 148/89 07/26/22 20:34 110 H 18 07/26/22 20:20 07/26/22 20:18 112 H 18 07/26/22 19:55 103 H 20 07/26/22 18:24 97.7 F 109 H 20 165/86 07/26/22 17:56 103 H 18 07/26/22 17:04 111 H 07/26/22 17:00 106 H 17 150/89 07/26/22 16:52 101 H 07/26/22 16:00 101 H 18 160/92 07/26/22 15:00 111 H 22 147/87 07/26/22 14:49 112 H 07/26/22 14:31 103 H 07/26/22 14:23 98.2 F 103 H 22 173/94 07/26/22 14:19 24 07/26/22 13:54 97.3 F L 120 H 36 H 159/81 BP Pulse Ox 07/27/22 11:18 07/27/22 10:55 07/27/22 08:00 07/27/22 07:45 07/27/22 07:14 171/93 94 L 07/27/22 02:02 95 07/26/22 20:34 07/26/22 20:20 95 07/26/22 20:18 07/26/22 19:55 07/26/22 18:24 96 07/26/22 17:56 94 L 07/26/22 17:04 07/26/22 17:00 94 L 07/26/22 16:52 07/26/22 16:00 94 L 07/26/22 15:00 95 07/26/22 14:49 07/26/22 14:31 07/26/22 14:23 97 07/26/22 14:19 07/26/22 13:54 98 Intake and Output 07/26/22 07/27/22 07/27/22 22:59 06:59 14:59 Intake Total 950 Balance 950 Intake: Oral 950 Other: Voiding Method Toilet # Voids 1 Weight 80.286 kg Gen. appearance the patient is is not having any respiratory distress at rest. The patient develops exertional dyspnea with activity. Head exam was generally normal. There was no scleral icterus or corneal arcus. M ucous membranes were moist. Neck was supple and without jugular venous distension, thyromegaly, or carotid bruits. Carotids were easily palpable bilaterally. There was no adenopathy. Lung sounds are diminished and the patient is admitted diffuse expiratory wheezes are blunted bilaterally and prolongation of exhalation phase of breathing Cardiac exam revealed the PMI to be normally situated and sized. The rhythm was regular and no extrasystoles were noted during several minutes of auscultation. The first and second heart sounds were normal and physiologic splitting of the second heart sound was noted. There were no murmurs, rubs, clicks, or gallops. Abdominal exam revealed normal bowel sounds. The abdomen was soft, non-tender, and without masses, organomegaly, or appreciable enlargement of the abdominal aorta. Examination of the extremities revealed easily palpable radial, femoral and ped al pulses. There was no cyanosis, clubbing or edema. Examination of the skin revealed no evidence of significant rashes, suspicious appearing nevi or other concerning lesions. Results - Laboratory Findings CBC and BMP: 07/27/22 06:31 07/27/22 06:31 PT/INR, D-dimer PT 9.5 sec (9.0-12.0) 07/26/22 14:14 INR 0.9 (<1.2) 07/26/22 14:14 Abnormal lab findings: Abnormal Labs 07/26/22 07/26/22 07/27/22 14:14 14:14 06:31 WBC 11.3 H 16.97 H RDW 15.8 H Plt Count 462 H Immature Gran # 0.29 H Neutrophils # 8.8 H 15.24 H Eosinophils # 0 L BUN 19 H BUN/Creatinine Ratio Glucose 118 H 07/27/22 06:31 WBC RDW Plt Count Immature Gran # Neutrophils # Eosinophils # BUN BUN/Creatinine Ratio 23.01 H Glucose 156 H - Diagnostic Findings Chest x-ray: image reviewed Assessment and Plan Plan: Acute on chronic dyspnea secondary to COPD exacerbation, pulmonary embolism is felt to be less likely yet not completely ruled out post Covid 19 infection. We'll check a d-dimer. We'll check a CT of the chest. Presentation is more typical of an acute COPD exacerbation. COPD, maintain on Trelegy Ellipta on outpatient basis, completed prednisone burst taper with limited improvement in her shortness of breath Smoker Recent infection with Covid 19 Hypertension Hypothyroidism Acid reflux Plan Continue albuterol neb 4 times a day [id number] Perforomist and Pulmicort neb treatments twice a day IV Solu-Medrol 60 mg every [address] of the chest Smoking cessation We'll continue to follow
--- NOTE | 2022-07-27 13:20 | CT ---
EXAMINATION TYPE: CT angio chest DATE OF EXAM: 07/27/2022 COMPARISON: CT chest April 09, 2016. Chest x-ray earlier today HISTORY: Dyspnea CT DLP: 231.90 mGycm. Automated Exposure Control for Dose Reduction was Utilized. CONTRAST: CTA scan of the thorax is performed without and with IV Contrast, patient injected with 100 ml mL of Isovue 370, pulmonary embolism protocol. MIP Images are created on CT scanner and reviewed. FINDINGS: Exam slightly suboptimal as the entire lung bases are not included LUNGS: No suspicious focal consolidation or groundglass opacity. There is no pleural effusion or pn eumothorax seen. The tracheobronchial tree is patent. MEDIASTINUM: There is satisfactory enhancement of the pulmonary artery and its branches, there is no CT evidence for pulmonary embolism. Satisfactory enhancement of the aorta without aneurysm or dissect ion. There are no greater than 1 cm hilar or mediastinal lymph nodes. No cardiomegaly or pericardia l effusion is seen. Coronary artery calcification is redemonstrated. OTHER: Small sized hiatal hernia. IMPRESSION: No CT evidence for acute pulmonary embolism. No suspicious acute pulmonary process.
[2022-07-27] MEDS: HEPARIN SODIUM,PORCINE/PF 5,000 UNIT/0.5 ML SYRINGE SQ SCH (17:03)
[2022-07-27] MEDS: BUDESONIDE 1 MG/2 ML NEBU INHALATION SCH ×2 (20:25→20:32)
[2022-07-27] MEDS: FORMOTEROL FUMARATE 20 MCG/2 ML NEBU INHALATION SCH ×2 (20:25→20:33)
[2022-07-28] MEDS: methylPREDNISolone SOD SUCCI 125 MG/2 ML VIAL IV SCH ×4 (00:02→17:15)
[2022-07-28] MEDS: HEPARIN SODIUM,PORCINE/PF 5,000 UNIT/0.5 ML SYRINGE SQ SCH ×3 (00:03→15:23)
[2022-07-28] MEDS: LEVOTHYROXINE 137 MCG TAB PO SCH (05:59)
[2022-07-28] MEDS: FORMOTEROL FUMARATE 20 MCG/2 ML NEBU INHALATION SCH ×2 (08:40→20:15)
[2022-07-28] MEDS: BUDESONIDE 1 MG/2 ML NEBU INHALATION SCH ×2 (08:41→20:15)
[2022-07-28] MEDS: IPRATROPIUM-ALBUTEROL 3 ML NEB INHALATION SCH ×4 (08:41→20:15)
[2022-07-28 08:49] LABS: HCT 38.4 % (37.2-46.3); HGB 12.7 g/dL (12.0-15.0); MCH 29.5 pg (27.0-32.0); MCHC 33.1 g/dL (32.0-37.0); MCV 89.3 fL (80.0-97.0); NRBC Per 100 WBC 0 /100 WBCS (0.0-0.0); Platelet Count 399 X 10*3/uL (140-440); RDW 16.2 % (11.5-14.5); WBC 26.27 X 10*3/uL (4.50-10.00)
[2022-07-28] MEDS: DOXYCYCLINE 100 MG CAP PO SCH ×2 (09:07→21:23)
[2022-07-28] MEDS: hydroCHLOROthiazide 25 MG TAB PO SCH (09:07)
[2022-07-28] MEDS: PANTOPRAZOLE 40 MG TABLET PO SCH (09:07)
[2022-07-28 09:37] LABS: African American GFR (CKD) 78.3 (60.0-200.0); Anion Gap 12.7 mmol/L (10.00-18.00); BUN/Creat Ratio 28.11 Ratio (12.00-20.00); Blood Urea Nitrogen 25.3 mg/dL (9.0-27.0); Calcium 9.4 mg/dL (8.7-10.3); Carbon Dioxide 26.3 mmol/L (20.0-27.5); Magnesium 1.7 mg/dL (1.5-2.4); Non-African American GFR(CKD) 67.6 (60.0-200.0); Potassium 4.2 mmol/L (3.5-5.5)
[2022-07-28 10:01] LABS: Basophils # (A) 0.04 X 10*3/uL (0.00-0.10); Basophils % (A) 0.2 %; Eosinophils # (A) 0.01 X 10*3/uL (0.04-0.35); Eosinophils % (A) 0 %; Immature Grans, Automated 1.6 %; Lymphocytes # (A) 0.92 X 10*3/uL (0.90-5.00); Lymphocytes % (A) 3.5 %; Monocytes # (A) 0.85 X 10*3/uL (0.20-1.00); Monocytes % (A) 3.2 %; Neutrophils # (A) 24.03 X 10*3/uL (1.80-7.70); Neutrophils % (A) 91.5 %; RBC Morphology NORMAL
--- NOTE | 2022-07-28 13:11 | P.PN ---
Subjective Progress Note Date: 07/28/22 The patient is seen today 07/28/2022 in follow-up for her COPD exacerbation. She is breathing easier today compared to yesterday. Not quite back to her baseline. She is still somewhat bronchospastic and wheezing. She is maintaining O2 saturations in the mid 90s on room air. She's afebrile. Hemodynamically stable. White count 26.0. Hemoglobin 12.7. Sodium 138. Potassium 4.2. BUN 25. Creatinine 0.9. Glucose 174. Calcitonin 0.05. She is continued on DuoNeb inhalations, Pulmicort and performs inhalations, IV Solu- Medrol. Heparin for DVT prophylaxis. Objective - Vital Signs Vital signs: Vital Signs Temp 97.6 F 07/28/22 11:25 Pulse 90 07/28/22 12:19 Resp 16 07/28/22 11:25 BP 146/83 07/28/22 11:25 Pulse Ox 95 07/28/22 11:25 FiO2 Intake & Output 07/27/22 07/28/22 07/28/22 18:59 06:59 18:59 Output Total 0 Balance 0 Output: Stool 0 Other: Voiding Method Toilet Toilet # Voids 4 1 - Exam GENERAL EXAM: Alert, pleasant 66-year-old female, on room air, fairly comfortable in no apparent distress. HEAD: Normocephalic. EYES: Normal reaction of pupils, equal size. NOSE: Clear with pink turbinates. THROAT: No erythema or exudates. NECK: No masses, no JVD. CHEST: No chest wall deformity. LUNGS: Equal air entry with bilateral end expiratory wheeze, diminished. CVS: S1 and S2 normal with no audible murmur, regular rhythm. ABDOMEN: No hepatosplenomegaly, normal bowel sounds, no guarding or rigidity. SPINE: No scoliosis or deformity SKIN: No rashes CENTRAL NERVOUS SYSTEM: No focal deficits, tone is normal in all 4 extremities. EXTREMITIES: There is no peripheral edema. No clubbing, no cyanosis. Peripheral pulses are intact. - Labs CBC & Chem 7: 07/28/22 04:37 07/28/22 04:37 Labs: Abnormal Lab Results - Last 24 Hours (Table) 07/28/22 07/28/22 Range/Units 04:37 04:37 WBC 26.27 H (4.50-10.00) X 10*3/uL RDW 16.2 H (11.5-14.5) % Immature Gran # 0.42 H (0.00-0.04) X 10*3/uL Neutrophils # 24.03 H (1.80-7.70) X 10*3/uL Eosinophils # 0.01 L (0.04-0.35) X 10*3/uL BUN/Creatinine Ratio 28.11 H (12.00-20.00) Ratio Glucose 174 H (70-110) mg/dL TSH 0.065 L (0.350-5.500) uIU/mL Assessment and Plan Assessment: Acute on chronic dyspnea secondary to COPD exacerbation. Procalcitonin 0.05 COPD, maintain on Trelegy Ellipta on outpatient basis, completed prednisone burst taper with limited improvement in her shortness of breath Smoker Recent infection with Covid 19 Hypertension Hypothyroidism Acid reflux Plan: The patient was seen and evaluated Medications and labs reviewed Add empiric antibiotics in the form of doxycycline Continue bronchodilators, steroids Check a d-dimer Increase her activity as tolerated Educated regarding the importance of complete smoking cessation We will continue to follow I have personally seen and examined the patient, performed the documentation and the assessment and plan as written. Number of minutes spent on the visit: 10.
[2022-07-28] MEDS: CYCLOBENZAPRINE 10 MG TAB PO PRN (21:23)
[2022-07-29] MEDS: HEPARIN SODIUM,PORCINE/PF 5,000 UNIT/0.5 ML SYRINGE SQ SCH ×4 (00:09→23:55)
[2022-07-29] MEDS: methylPREDNISolone SOD SUCCI 125 MG/2 ML VIAL IV SCH ×5 (00:10→23:55)
[2022-07-29] MEDS: LEVOTHYROXINE 137 MCG TAB PO SCH (05:53)
[2022-07-29 08:03] LABS: Glucose,Whole Blood 204 mg/dL (70-110)
[2022-07-29] MEDS ORDERED: DEXTROSE 50% SYRINGE 50 ML IVP PRN ×2 (08:12)
[2022-07-29] MEDS: FORMOTEROL FUMARATE 20 MCG/2 ML NEBU INHALATION SCH ×2 (08:58→22:01)
[2022-07-29] MEDS: IPRATROPIUM-ALBUTEROL 3 ML NEB INHALATION SCH ×4 (08:58→22:06)
[2022-07-29] MEDS: BUDESONIDE 1 MG/2 ML NEBU INHALATION SCH ×2 (08:58→22:02)
--- NOTE | 2022-07-29 11:20 | P.PN ---
Subjective Progress Note Date: 07/28/22 H&P Date: 07/27/22 Chief Complaint: Shortness of breath Maddi is a pleasant 66-year-old white female. She's been in the office complaining of increasing shortness of breath over the past several weeks since there is "spraying something at work" that trigger her respiratory distress. She has a known history of COPD, smoker, and asthma. She ordinarily sees Dr. Pretty Roberts for these. She ports being in my office seeing . currently receiving a steroid pack and some other medications just several days ago. She reports her shortness of breath had worsened and she came emergency room last night. Today she is receiving updraft. She complains of shortness of breath with any sort of exertion. Denies any chest pains, nausea, vomiting. She does complain of her chronic pain which she takes her home medications for. Vital signs show her mildly tachycardic, blood pressure slightly elevated. Labs show leukocytosis with a left shift. INR is normal. Blood chemistries normal. Influenza A and coronavirus screens negative. 07/28/22 Chest CTA reported no evidence for acute PE, no suspicious acute pulmonary process. Afebrile, pro-calcitonin 0.05. Continues on nebulized bronchodilators, IV steroids and empiric doxycycline ,maintaining O2 sats in the 90s on room air. Reports ambulating, tolerated exertion well.denies chest pain, palpitations or increasing shortness of breath. Denies nausea vomiting or diarrhea. Labs pending. Objective - Vital Signs Vital signs: Vital Signs Temp 97.6 F 07/28/22 11:25 Pulse 90 07/28/22 12:19 Resp 16 07/28/22 11:25 BP 146/83 07/28/22 11:25 Pulse Ox 95 07/28/22 11:25 FiO2 Intake & Output 07/27/22 07/28/22 07/28/22 18:59 06:59 18:59 Output Total 0 Balance 0 Output: Stool 0 Other: Voiding Method Toilet Toilet # Voids 4 1 - Exam GENERAL: Alert and oriented 3, sitting up in bed, no acute distress HEAD: Atraumatic, normocephalic. EYES: Pupils equal round and reactive to light, conjunctiva are normal. ENT: oropharynx clear without exudates. Moist mucous membranes. NECK: supple, no JVD LUNGS coarse breath sounds bilaterally with decreased rhonchi , decreased expiratory wheezing throughout HEART: Regular S1 and S2 ,rate and rhythm without murmurs, rubs or gallops. ABDOMEN: Soft, nontender, normoactive bowel sounds. No guarding, no rebound. No masses appreciated. EXTREMITIES: no edema ,No clubbing or cyanosis. NEUROLOGICAL: Cranial nerves II through XII grossly intact. Normal speech, normal gait. PSYCH: Normal mood, normal affect. SKIN: Warm, Dry, no rashes noted. - Labs CBC & Chem 7: 07/28/22 04:37 07/28/22 04:37 Labs: Abnormal Lab Results - Last 24 Hours (Table) 07/28/22 07/28/22 Range/Units 04:37 04:37 WBC 26.27 H (4.50-10.00) X 10*3/uL RDW 16.2 H (11.5-14.5) % Immature Gran # 0.42 H (0.00-0.04) X 10*3/uL Neutrophils # 24.03 H (1.80-7.70) X 10*3/uL Eosinophils # 0.01 L (0.04-0.35) X 10*3/uL BUN/Creatinine Ratio 28.11 H (12.00-20.00) Ratio Glucose 174 H (70-110) mg/dL TSH 0.065 L (0.350-5.500) uIU/mL Assessment and Plan Assessment: (1)Acute exacerbation of chronic obstructive pulmonary disease Current Visit: Yes Status: Acute Code(s): J44.1 - CHRONIC OBSTRUCTIVE PULMONARY DISEASE W (ACUTE) EXACERBATION SNOMED Code(s): 950996238 (2) Acute and chronic respiratory failure with hypoxia secondary to the above Current Visit: Yes Status: Acute Code(s): J96.21 - ACUTE AND CHRONIC RESPIRATORY FAILURE WITH HYPOXIA SNOMED Code(s): 88128647 (2) Essential (primary) hypertension Current Visit: Yes Status: Acute Code(s): I10 - ESSENTIAL (PRIMARY) HYPERTENSION SNOMED Code(s): 31006280 (4) Acquired hypothyroidism Current Visit: Yes Status: Acute Code(s): E03.9 - HYPOTHYROIDISM, UNSPECIFIED SNOMED Code(s): 646500307 (5) Shoulder pain Current Visit: Yes Status: Acute Code(s): M25.519 - PAIN IN UNSPECIFIED SHOULDER SNOMED Code(s): 09284605 (5) ongoing nicotine dependence (6) recent covid- 19 infection (7) gastroesophageal reflux disease Plan: Continue on current medication regime ,monitoring and symptomatic treatment. Labs pending.Maintain nebulized bronchodilators, steroids, empiric antibiotics. Increase ambulation as tolerated. Smoking cessation reinforced. Discharge planning in progress for tomorrow pending continued improvement, final DC recommendations and clearance per pulmonary. The impression and plan of care has been dictated as directed. : I performed a history and examination of this patient, discussed the same with the dictator. I agree with the dictator's note ,documented as a scribe. Any additional findings or plans will be noted.
[2022-07-29 12:06] LABS: Glucose,Whole Blood 195 mg/dL (70-110)
[2022-07-29] MEDS: DOXYCYCLINE 100 MG CAP PO SCH ×2 (12:15→20:38)
[2022-07-29] MEDS: INSULIN ASPART (NovoLOG) 100 UNIT/ML VIAL SQ SCH ×3 (12:16→20:38)
[2022-07-29] MEDS: hydroCHLOROthiazide 25 MG TAB PO SCH (12:16)
[2022-07-29] MEDS: PANTOPRAZOLE 40 MG TABLET PO SCH (12:17)
--- NOTE | 2022-07-29 12:37 | P.PN ---
Subjective Progress Note Date: 07/29/22 The patient is seen today 07/28/2022 in follow-up for her COPD exacerbation. She is breathing easier today compared to yesterday. Not quite back to her baseline. She is still somewhat bronchospastic and wheezing. She is maintaining O2 saturations in the mid 90s on room air. She's afebrile. Hemodynamically stable. White count 26.0. Hemoglobin 12.7. Sodium 138. Potassium 4.2. BUN 25. Creatinine 0.9. Glucose 174. Calcitonin 0.05. She is continued on DuoNeb inhalations, Pulmicort and performs inhalations, IV Solu- Medrol. Heparin for DVT prophylaxis. The patient is seen today 07/29/2022 in follow-up on the regular medical floor. She remains awake and alert in no acute distress. Feeling back to her baseline. CT angiogram ruled out pulmonary embolism. No suspicious acute pulmonary process. She is maintaining O2 saturations in the 90s on room air. She still has some expiratory wheezing. Still with some dyspnea on exertion. She is continued on DuoNeb inhalations, and Perforomist inhalations, IV Solu-Medrol. Empiric antibiotics in the form of doxycycline. Heparin for DVT prophylaxis. Blood glucose 195. Objective - Vital Signs Vital signs: Vital Signs Temp 98.1 F 07/29/22 08:00 Pulse 114 H 07/29/22 12:15 Resp 14 07/29/22 08:00 BP 171/92 07/29/22 12:15 Pulse Ox 94 L 07/29/22 08:58 FiO2 21 07/29/22 08:58 Intake & Output 07/28/22 07/29/22 07/29/22 18:59 06:59 18:59 Intake Total 540 Output Total 0 Balance 540 Intake: Oral 540 Output: Stool 0 Other: Voiding Method Toilet Toilet Toilet # Voids 4 - Exam GENERAL EXAM: Alert, active 66-year-old female, on room air, fairly comfortable in no apparent distress. HEAD: Normocephalic. EYES: Normal reaction of pupils, equal size. NOSE: Clear with pink turbinates. THROAT: No erythema or exudates. NECK: No masses, no JVD. CHEST: No chest wall deformity. LUNGS: Equal air entry with bilateral end expiratory wheeze, diminished. CVS: S1 and S2 normal with no audible murmur, regular rhythm. ABDOMEN: No hepatosplenomegaly, normal bowel sounds, no guarding or rigidity. SPINE: No scoliosis or deformity SKIN: No rashes CENTRAL NERVOUS SYSTEM: No focal deficits, tone is normal in all 4 extremities. EXTREMITIES: There is no peripheral edema. No clubbing, no cyanosis. Peripheral pulses are intact. - Labs CBC & Chem 7: 07/28/22 04:37 07/28/22 04:37 Labs: Abnormal Lab Results - Last 24 Hours (Table) 07/28/22 07/29/22 07/29/22 Range/Units 15:27 07:57 12:04 D-Dimer 0.65 H (<0.60) mg/L FEU POC Glucose (mg/dL) 204 H 195 H (70-110) mg/dL Assessment and Plan Assessment: Acute on chronic dyspnea secondary to COPD exacerbation. Procalcitonin 0.05. CT angiogram ruled out pulmonary embolism. No acute pulmonary process. COPD, maintain on Trelegy Ellipta on outpatient basis, completed prednisone burst taper with limited improvement in her shortness of breath Smoker Recent infection with Covid 19 Hypertension Hypothyroidism Acid reflux Plan: The patient was seen and evaluated CT angiogram, medications and labs reviewed Improved but not quite back to her baseline Continue the current treatment plan Increase her activity as tolerated We will continue to follow I have personally seen and examined the patient, performed the documentation and the assessment and plan as written. Number of minutes spent on the visit: 10.
--- NOTE | 2022-07-29 13:09 | P.PN ---
Subjective Progress Note Date: 07/29/22 H&P Date: 07/27/22 Chief Complaint: Shortness of breath Maddi is a pleasant 66-year-old white female. She's been in the office complaining of increasing shortness of breath over the past several weeks since there is "spraying something at work" that trigger her respiratory distress. She has a known history of COPD, smoker, and asthma. She ordinarily sees Dr. Pretty Roberts for these. She ports being in my office seeing . currently receiving a steroid pack and some other medications just several days ago. She reports her shortness of breath had worsened and she came emergency room last night. Today she is receiving updraft. She complains of shortness of breath with any sort of exertion. Denies any chest pains, nausea, vomiting. She does complain of her chronic pain which she takes her home medications for. Vital signs show her mildly tachycardic, blood pressure slightly elevated. Labs show leukocytosis with a left shift. INR is normal. Blood chemistries normal. Influenza A and coronavirus screens negative. 07/28/22 Chest CTA reported no evidence for acute PE, no suspicious acute pulmonary process. Afebrile, pro-calcitonin 0.05. Continues on nebulized bronchodilators, IV steroids and empiric doxycycline ,maintaining O2 sats in the 90s on room air. Reports ambulating, tolerated exertion well.denies chest pain, palpitations or increasing shortness of breath. Denies nausea vomiting or diarrhea. Labs pending. 07/30/2023. Breathing continues to improve, on nebulized bronchodilators, steroids and antibiotics with decreased wheezing, mild exertional dyspnea. Sitting up in chair, maintaining O2 sats in the 90s on room air. Afebrile. TSH 0.06, free T4 1.790. Objective - Vital Signs Vital signs: Vital Signs Temp 98.1 F 07/29/22 08:00 Pulse 114 H 07/29/22 12:15 Resp 14 07/29/22 08:00 BP 171/92 07/29/22 12:15 Pulse Ox 94 L 07/29/22 08:58 FiO2 21 07/29/22 08:58 Intake & Output 07/28/22 07/29/22 07/29/22 18:59 06:59 18:59 Intake Total 540 Output Total 0 Balance 540 Intake: Oral 540 Output: Stool 0 Other: Voiding Method Toilet Toilet Toilet # Voids 4 2 - Exam GENERAL: Alert and oriented 3, sitting up in chair, no acute distress HEAD: Atraumatic, normocephalic. EYES: Pupils equal round and reactive to light, conjunctiva are normal. ENT: oropharynx clear without exudates. Moist mucous membranes. NECK: supple, no JVD LUNGS: Bilateral bases diminished with decreased expiratory wheezing. HEART: Regular S1 and S2 ,rate and rhythm without murmurs, rubs or gallops. ABDOMEN: Soft, nontender, normoactive bowel sounds. No guarding, no rebound. No masses appreciated. EXTREMITIES: no edema ,No clubbing or cyanosis. NEUROLOGICAL: Cranial nerves II through XII grossly intact. Normal speech, normal gait. PSYCH: Normal mood, normal affect. SKIN: Warm, Dry, no rashes noted. - Labs CBC & Chem 7: 07/28/22 04:37 07/28/22 04:37 Labs: Abnormal Lab Results - Last 24 Hours (Table) 07/28/22 07/29/22 07/29/22 Range/Units 15:27 07:57 12:04 D-Dimer 0.65 H (<0.60) mg/L FEU POC Glucose (mg/dL) 204 H 195 H (70-110) mg/dL Assessment and Plan Assessment: (1)Acute exacerbation of chronic obstructive pulmonary disease Current Visit: Yes Status: Acute Code(s): J44.1 - CHRONIC OBSTRUCTIVE PULMONARY DISEASE W (ACUTE) EXACERBATION SNOMED Code(s): 499869293 (2) Acute and chronic respiratory failure with hypoxia secondary to the above Current Visit: Yes Status: Acute Code(s): J96.21 - ACUTE AND CHRONIC RESPIRATORY FAILURE WITH HYPOXIA SNOMED Code(s): 96123137 (2) Essential (primary) hypertension Current Visit: Yes Status: Acute Code(s): I10 - ESSENTIAL (PRIMARY) HYPERTENSION SNOMED Code(s): 61681322 (4) Acquired hypothyroidism, supratherapeutic, dose decreased Current Visit: Yes Status: Acute Code(s): E03.9 - HYPOTHYROIDISM, U NSPECIFIED SNOMED Code(s): 955295623 (5) Shoulder pain Current Visit: Yes Status: Acute Code(s): M25.519 - PAIN IN UNSPECIFIED SHOULDER SNOMED Code(s): 88709579 (5) ongoing nicotine dependence (6) recent covid- 19 infection (7) gastroesophageal reflux disease Plan: Continue on current medication regime ,monitoring and symptomatic treatment. Continue on nebulized bronchodilators, steroids, empiric antibiotics. Increase ambulation as tolerated. Levothyroxine dose decreased, repeat thyroid levels in 6-8 weeks. Smoking cessation reinforced. Discharge planning in progress for tomorrow pending continued improvement, final DC recommendations and clearance per pulmonary. The impression and plan of care has been dictated as directed. : I performed a history and examination of this patient, discussed the same with the dictator. I agree with the dictator's note ,documented as a scribe. Any additional findings or plans will be noted.
[2022-07-29] MEDS: MAGNESIUM OXIDE 400 MG TAB PO SCH (15:34)
[2022-07-29 17:09] LABS: Glucose,Whole Blood 319 mg/dL (70-110)
[2022-07-29 20:17] LABS: Glucose,Whole Blood 274 mg/dL (70-110)
[2022-07-29] MEDS: CYCLOBENZAPRINE 10 MG TAB PO PRN (20:46)
[2022-07-30] MEDS: methylPREDNISolone SOD SUCCI 125 MG/2 ML VIAL IV SCH ×2 (05:27→12:38)
[2022-07-30] MEDS ORDERED: LEVOTHYROXINE 125 MCG TAB PO SCH (06:30)
[2022-07-30 07:33] LABS: Glucose,Whole Blood 207 mg/dL (70-110)
[2022-07-30] MEDS: FORMOTEROL FUMARATE 20 MCG/2 ML NEBU INHALATION SCH (07:38)
[2022-07-30] MEDS: BUDESONIDE 1 MG/2 ML NEBU INHALATION SCH (07:38)
[2022-07-30] MEDS: IPRATROPIUM-ALBUTEROL 3 ML NEB INHALATION SCH ×2 (07:38→11:35)
[2022-07-30] MEDS: PANTOPRAZOLE 40 MG TABLET PO SCH (08:37)
[2022-07-30] MEDS: DOXYCYCLINE 100 MG CAP PO SCH (08:38)
[2022-07-30] MEDS: MAGNESIUM OXIDE 400 MG TAB PO SCH (08:38)
[2022-07-30] MEDS: HEPARIN SODIUM,PORCINE/PF 5,000 UNIT/0.5 ML SYRINGE SQ SCH (08:38)
[2022-07-30] MEDS: hydroCHLOROthiazide 25 MG TAB PO SCH (08:38)
[2022-07-30] MEDS: INSULIN ASPART (NovoLOG) 100 UNIT/ML VIAL SQ SCH ×2 (08:41→13:05)
--- NOTE | 2022-07-30 12:35 | P.PN ---
Subjective Progress Note Date: 07/30/22 The patient is seen today 07/28/2022 in follow-up for her COPD exacerbation. She is breathing easier today compared to yesterday. Not quite back to her baseline. She is still somewhat bronchospastic and wheezing. She is maintaining O2 saturations in the mid 90s on room air. She's afebrile. Hemodynamically stable. White count 26.0. Hemoglobin 12.7. Sodium 138. Potassium 4.2. BUN 25. Creatinine 0.9. Glucose 174. Calcitonin 0.05. She is continued on DuoNeb inhalations, Pulmicort and performs inhalations, IV Solu- Medrol. Heparin for DVT prophylaxis. The patient is seen today 07/29/2022 in follow-up on the regular medical floor. She remains awake and alert in no acute distress. Feeling back to her baseline. CT angiogram ruled out pulmonary embolism. No suspicious acute pulmonary process. She is maintaining O2 saturations in the 90s on room air. She still has some expiratory wheezing. Still with some dyspnea on exertion. She is continued on DuoNeb inhalations, and Perforomist inhalations, IV Solu-Medrol. Empiric antibiotics in the form of doxycycline. Heparin for DVT prophylaxis. Blood glucose 195. The patient is seen today 07/30/2022 in follow-up on the regular medical floor. She is sitting up in bed. Awake and alert in no acute distress. No worsening shortness of breath, cough or congestion. No fever or chills. She is maintaining good O2 saturations in the 90s on room air. Afebrile. Blood sugar 207. She is continued on DuoNeb inhalations, and Perforomist inhalations, IV Solu-Medrol. Empiric antibiotics in the form of doxycycline. Heparin for DVT prophylaxis. Objective - Vital Signs Vital signs: Vital Signs Temp 97.4 F L 07/30/22 08:00 Pulse 115 H 07/30/22 11:46 Resp 16 07/30/22 08:00 BP 154/87 07/30/22 08:00 Pulse Ox 96 07/30/22 08:00 FiO2 21 07/29/22 08:58 Intake & Output 07/29/22 07/30/22 07/30/22 18:59 06:59 18:59 Intake Total 590 Output Total 0 0 Balance 590 0 Intake: Oral 590 Output: Stool 0 0 Other: Voiding Method Toilet Toilet Toilet # Voids 3 2 1 - Exam GENERAL EXAM: Alert, 66-year-old female, on room air, comfortable in no apparent distress. HEAD: Normocephalic. EYES: Normal reaction of pupils, equal size. NOSE: Clear with pink turbinates. THROAT: No erythema or exudates. NECK: No masses, no JVD. CHEST: No chest wall deformity. LUNGS: Equal air entry with bilateral end expiratory wheeze, diminished. CVS: S1 and S2 normal with no audible murmur, regular rhythm. ABDOMEN: No hepatosplenomegaly, normal bowel sounds, no guarding or rigidity. SPINE: No scoliosis or deformity SKIN: No rashes CENTRAL NERVOUS SYSTEM: No focal deficits, tone is normal in all 4 extremities. EXTREMITIES: There is no peripheral edema. No clubbing, no cyanosis. P eripheral pulses are intact. - Labs CBC & Chem 7: 07/28/22 04:37 07/28/22 04:37 Labs: Abnormal Lab Results - Last 24 Hours (Table) 07/29/22 07/29/22 07/29/22 Range/Units 08:39 17:07 20:15 POC Glucose (mg/dL) 319 H 274 H (70-110) mg/dL Hemoglobin A1c 6.7 H (0.0-6.0) % 07/30/22 Range/Units 07:32 POC Glucose (mg/dL) 207 H (70-110) mg/dL Hemoglobin A1c (0.0-6.0) % Assessment and Plan Assessment: Acute on chronic dyspnea secondary to COPD exacerbation. Procalcitonin 0.05. CT angiogram ruled out pulmonary embolism. No acute pulmonary process. COPD, maintain on Trelegy Ellipta on outpatient basis, completed prednisone burst taper with limited improvement in her shortness of breath Smoker Recent infection with Covid 19 Hypertension Hypothyroidism Acid reflux Plan: The patient was seen and evaluated Medications reviewed Cleared for discharge from the pulmonary standpoint Complete a prednisone taper Complete a course of antibiotics Continue her home pulmonary medications Follow-up in the office in a week I have personally seen and examined the patient, performed the documentation and the assessment and plan as written. Number of minutes spent on the visit: 10.
[2022-07-30 12:41] LABS: Glucose,Whole Blood 364 mg/dL (70-110)
--- NOTE | 2022-07-30 12:52 | P.DS ---
Providers Date of admission: 07/26/22 15:56 Expected date of discharge: 07/30/22 Attending physician: Faheem Roberts Consults: 07/27/22 11:20 Consult Physician Routine Consulting Provider: Krysten Hollingsworth Consult Reason/Comments: COPD Do you want consulting provider notified?: Yes Primary care physician: [facility] Course: Final Diagnoses: (1)Acute exacerbation of chronic obstructive pulmonary disease Current Visit: Yes Status: Acute Code(s): J44.1 - CHRONIC OBSTRUCTIVE PULMONARY DISEASE W (ACUTE) EXACERBATION SNOMED Code(s): 331096666 (2) Acute and chronic respiratory failure with hypoxia secondary to the above Current Visit: Yes Status: Acute Code(s): J96.21 - ACUTE AND CHRONIC RESPIRATORY FAILURE WITH HYPOXIA SNOMED Code(s): 63454700 (2) Essential (primary) hypertension Current Visit: Yes Status: Acute Code(s): I10 - ESSENTIAL (PRIMARY) HYPERTENSION SNOMED Code(s): 43163959 (4) Acquired hypothyroidism, supratherapeutic, dose decreased Current Visit: Yes Status: Acute Code(s): E03.9 - HYPOTHYROIDISM, UNSPECIFIED SNOMED Code(s): 943761127 (5) Shoulder pain Current Visit: Yes Status: Acute Code(s): M25.519 - PAIN IN UNSPECIFIED SHOULDER SNOMED Code(s): 19735582 (5) ongoing nicotine dependence (6) recent covid- 19 infection (7) gastroesophageal reflux disease Hospital course:Maddi is a pleasant 66-year-old white female. She's been in the office complaining of increasing shortness of breath over the past several weeks since there is "spraying something at work" that trigger her respiratory di stress. She has a known history of COPD, smoker, and asthma. She ordinarily sees Dr. Pretty Roberts for these. She ports being in my office seeing currently receiving a steroid pack and some other medications just several days ago. She reports her shortness of breath had worsened and she came emergency room last night. Today she is receiving updraft. She complains of shortness of breath with any sort of exertion. Denies any chest pains, nausea, vomiting. She does complain of her chronic pain which she takes her home medications for. Vital signs show her mildly tachycardic, blood pressure slightly elevated. Labs show leukocytosis with a left shift. INR is normal. Blood chemistries normal. Influenza A and coronavirus screens negative. 07/28/22 Chest CTA reported no evidence for acute PE, no suspicious acute pulmonary process. Afebrile, pro-calcitonin 0.05. Continues on nebulized bronchodilators, IV steroids and empiric doxycycline ,maintaining O2 sats in the 90s on room air. Reports ambulating, tolerated exertion well.denies chest pain, palpitations or increasing shortness of breath. Denies nausea vomiting or diarrhea. Labs pending. 07/30/2023. Breathing continues to improve, on nebulized bronchodilators, steroids and antibiotics with decreased wheezing, mild exertional dyspnea. Sitting up in chair, maintaining O2 sats in the 90s on room air. Afebrile. TSH 0.06, free T4 1.790. Maintained on nebulized bronchodilators, steroids, antibiotics . Levothyroxine dose decreased with repeat thyroid levels in 6-8 weeks. Smoking cessation reinforced Significant clinical improvement. Cleared by pulmonary for discharge. Patient will be discharged home today in a stable condition with guarded prognosis. The impression and plan of care has been dictated as directed. : I performed a history and examination of this patient, discussed the same with the dictator. I agree with the dictator's note ,documented as a scribe. Any additional findings or plans will be noted. Patient Condition at Discharge: Stable Plan - Discharge Summary Discharge Rx Participant: Yes New Discharge Prescriptions: New predniSONE 10 mg PO DIRECTED #30 tab Doxycycline [Vibramycin] 100 mg PO BID 5 Days #10 cap Ipratropium-Albuterol Nebulize [Duoneb 0.5 mg-3 mg/3 ml Soln] 3 ml INHALATION RT-QID #120 each Levothyroxine Sodium [Synthroid] 125 mcg PO DAILY@0630 #30 tab Continue hydroCHLOROthiazide [Hydrodiuril] 25 mg PO DAILY Omeprazole [PriLOSEC] 20 mg PO DAILY Cyclobenzaprine [Flexeril] 10 mg PO HS PRN PRN Reason: Muscle Pain Fluticasone/Umeclidin/Vilanter [Trelegy Ellipta 100-62.5-25] 1 puff INHALATION RT-DAILY Albuterol Inhaler [Ventolin Hfa Inhaler] 1 - 2 puff INHALATION RT-Q6H PRN PRN Reason: Shortness Of Breath diphenhydrAMINE HCL [Benadryl] 25 mg PO Q6H PRN PRN Reason: if she takes norco Fexofenadine HCl [Cristina Allergy] 180 mg PO DAILY HYDROcodone/APAP 5-325MG [[place] 5-325] 1 tab PO Q6HR PRN PRN Reason: Pain Acetaminophen [Tylenol Arthritis] 650 mg PO Q6H PRN PRN Reason: Pain Discontinued Levothyroxine Sodium [Synthroid] 137 mcg PO DAILY predniSONE See Taper PO DIRECTED Discharge Medication List Cyclobenzaprine [Flexeril] 10 mg PO HS PRN 02/24/14 [History] Omeprazole [PriLOSEC] 20 mg PO DAILY 02/24/14 [History] hydroCHLOROthiazide [Hydrodiuril] 25 mg PO DAILY 02/24/14 [History] Acetaminophen [Tylenol Arthritis] 650 mg PO Q6H PRN 07/26/22 [History] Albuterol Inhaler [Ventolin Hfa Inhaler] 1 - 2 puff INHALATION RT-Q6H PRN 07/26/22 [History] Fexofenadine HCl [Cristina Allergy] 180 mg PO DAILY 07/26/22 [History] Fluticasone/Umeclidin/Vilanter [Trelegy Ellipta 100-62.5-25] 1 puff INHALATION RT-DAILY 07/26/22 [History] HYDROcodone/APAP 5-325MG [[place] 5-325] 1 tab PO Q6HR PRN 07/26/22 [History] diphenhydrAMINE HCL [Benadryl] 25 mg PO Q6H PRN 07/26/22 [History] Doxycycline [Vibramycin] 100 mg PO BID 5 Days #10 cap 07/30/22 [Rx] Ipratropium-Albuterol Nebulize [Duoneb 0.5 mg-3 mg/3 ml Soln] 3 ml INHALATION RT-QID #120 each 07/30/22 [Rx] Levothyroxine Sodium [Synthroid] 125 mcg PO DAILY@0630 #30 tab 07/30/22 [Rx] predniSONE 10 mg PO DIRECTED #30 tab 07/30/22 [Rx] Follow up Appointment(s)/Referral(s): Kwame Ramirez MD [STAFF PHYSICIAN] - 08/14/22 10:00 am Faheem Roberts Jr, DO [Primary Care Provider] - 3 Days Patient Instructions/Handouts: COPD (Chronic Obstructive Pulmonary Disease) (DC)
[2022-07-30 14:20] VITALS: BP 160/92; PULSE 112; RESP 17; TEMP 98
== END 2022-07-30 15:06 | disposition home or self-care (01) | DRG 190 ==
LOC: EC 13:51 → 5NMEDONC 15:56
PROVIDERS: ADMIT Family Medicine; ATTEND Family Medicine
DX: J44.1 Chronic obstructive pulmonary disease with (acute) exacerbation (principal); J96.21 Acute and chronic respiratory failure with hypoxia; J45.901 Unspecified asthma with (acute) exacerbation; Z20.822 Contact with and (suspected) exposure to COVID-19; E03.9 Hypothyroidism, unspecified; F17.210 Nicotine dependence, cigarettes, uncomplicated; K21.9 Gastro-esophageal reflux disease without esophagitis; I10 Essential (primary) hypertension; G89.29 Other chronic pain; Z86.16 Personal history of COVID-19; Z79.52 Long term (current) use of systemic steroids; Z79.890 Hormone replacement therapy; Z79.899 Other long term (current) drug therapy; Z82.5 Family history of asthma and other chronic lower respiratory diseases
CPT/HCPCS: 36415; 71045; 71046; 71275; 80048; 80053; 83036; 83605; 83735; 83880; 84145; 84439; 84443; 84484; 85025; 85379; 85610; 85730; 87502; 87635; 93005; 94640; 94760; 96374; 99291

== ENCOUNTER → 2023-08-28 | Outpatient (CLI) | payer BC, MEDICARE ==
--- NOTE | 2023-08-29 14:32 | CTL ---
EXAMINATION TYPE: CT Low Dose Lung DATE OF EXAM ORDERED: 08/28/2023 HISTORY: Nicotine dependence. Lung cancer screening CT DLP: mGycm CT CTDI: mGy Automated exposure control for dose reduction was used. SCREENING VISIT: Initial COMPARISON: None TECHNIQUE: Low dose computed tomography scan was performed through the chest at 1 mm thick sections a nd reconstructed images in the coronal plane at [address] DIAGNOSTIC QUALITY: Satisfactory FINDINGS: LUNG NODULES: Present, detailed below: 1. There is a 0.5 cm linear density within the anterior right upper lung field. Series 4 image 76. 2. A 0.6 cm nodules in the periphery of the anterolateral right lung. Series 4 image 80. 3. There is a 0.6 cm nodule peripheral lateral right lung. Series 4 image 206. #4 there is a pleural- based density posterior right lung. Series 4 image 212. LUNGS: COPD: Severity: None Fibrosis: Severity: None Lymph nodes: None Other findings: None RIGHT PLEURAL SPACE: Effusion: None Calcification: None Thickening: None Pneumothorax: None LEFT PLEURAL SPACE: Effusion: None Calcification: None Thickening: None Pneumothorax: None HEART: Heart Size: Normal Coronary calcification: Mild Pericardial effusion: None OTHER FINDINGS: Upper abdomen: Small hiatal hernia is present. Bony thorax: Normal Supraclavicular region: Normal Other: Ascending thoracic aorta at the level the main pulmonary artery measures 3.4 cm. The main pul monary artery at the bifurcation measures 2.4 cm. IMPRESSION: Benign appearance FOLLOW UP CT CHEST RECOMMENDATION: Follow-up low-dose CT chest [address] LUNG RAD: Lung-Rad 2 Benign Appearance or Behavior
== END | disposition home or self-care (01) ==
LOC: RADCTMAIN 13:11
PROVIDERS: ATTEND Internal Medicine
DX: Z12.2 Encounter for screening for malignant neoplasm of respiratory organs (principal); F17.210 Nicotine dependence, cigarettes, uncomplicated
CPT/HCPCS: 71271

== ENCOUNTER → 2023-10-22 | Outpatient (CLI) | payer BC, MEDICARE ==
--- NOTE | 2023-10-22 11:06 | CT ---
EXAMINATION TYPE: CT lumbar spine wo con DATE OF EXAM: 10/22/2023 COMPARISON: None HISTORY: 68-year-old female [id number] bilateral low back pain, sciatic pain TECHNIQUE: Contiguous axial scanning of the lumbar spine without IV contrast. Coronal and sagittal re constructions performed. CT DLP: 986 mGycm Automated exposure control for dose reduction was used. FINDINGS: Hypertrophic facet arthropathy greatest in the mid to lower lumbar spine, especially towards the left . Degenerative trace grade 1 retrolisthesis L1-L2 and L2-L3. Vertebral body heights are preserved and remaining alignment is maintained. Mild multilevel degenerative disc disease. More moderate at L4-L5 with disc desiccation and a L1-L2 w ith disc space narrowing. Bulging discs are present throughout. This impresses on the ventral thecal sac at multiple levels but without significant spinal canal sten osis. On the right, changes result in moderate neuroforaminal stenosis at L4-L5 and mild at both L1-L2 and L2-L3. On the left, changes result in moderate to severe neuroforaminal stenosis at L4-L5, moderate at L3-L4 , and mild at L2-L3. No prevertebral or paravertebral soft tissue abnormality seen. IMPRESSION: 1. HYPERTROPHIC FACET ARTHROPATHY MID TO LOWER LUMBAR SPINE, GREATEST TOWARDS THE LEFT. DEGENERATIVE TRACE GRADE 1 RETROLISTHESIS L1-L2 AND L2-L3. 2. ADDITIONAL MILD TO MODERATE DEGENERATIVE DISC DISEASE THROUGHOUT. NO LARGE FOCAL DISC HERNIATION O R SIGNIFICANT SPINAL CANAL STENOSIS. 3. CHANGES RESULT IN MODERATE TO SEVERE LEFT NEURAL FORAMINAL STENOSIS AT L4-L5 AND MODERATE ON THE R IGHT. ADDITIONAL MODERATE ON THE LEFT AT L3-L4.
== END | disposition home or self-care (01) ==
LOC: RADCTMAIN 09:36
PROVIDERS: ATTEND Family Medicine
DX: M54.41 Lumbago with sciatica, right side (principal); M47.816 Spondylosis without myelopathy or radiculopathy, lumbar region; M43.16 Spondylolisthesis, lumbar region; M48.061 Spinal stenosis, lumbar region without neurogenic claudication; M51.36 Other intervertebral disc degeneration, lumbar region
CPT/HCPCS: 72131

== ENCOUNTER → 2024-01-11 | Outpatient (CLI) | payer BC, MEDICARE | END | disposition home or self-care (01) | LOC: LABPAT 11:45 | PROVIDERS: ATTEND Orthopaedic Surgery | DX: Z01.818 Encounter for other preprocedural examination | CPT/HCPCS: 86850; 86900; 86901; 87070 ==

== ENCOUNTER 2024-01-19 10:41 | Day surgery (SDC) | payer BC, MEDICARE ==
--- NOTE | 2024-01-18 10:34 | P.HPOR ---
History of Present Illness H&P Date: 01/18/24 Chief Complaint: Right hip pain Patient is a 68-year-old female who presents with progressive right hip pain for the past several years worsening recently. She's having pain with weightbearing activities. She's tried medications without much relief. She notes daily pain that limits her. Review of Systems Per HPI Past Medical History Past Medical History: Asthma, COPD, GERD/Reflux, Hypertension, Thyroid Disorder History of Any Multi-Drug Resistant Organisms: None Reported Past Surgical History: Section, Orthopedic Surgery, Tubal Ligation Additional Past Surgical History / Comment(s): neck surgery C5-C6, lft knee arthroscopy lateral release then had surgery for knee cap, left shoulder, sinus sx x2, rt wrist Past Anesthesia/Blood Transfusion Reactions: Postoperative Nausea & Vomiting (PONV) Smoking Status: Current every day smoker - Past Family History Mother Family Medical History: COPD Medications and Allergies Home Medications Medication Instructions Recorded Confirmed Type Omeprazole [PriLOSEC] 20 mg PO DAILY 02/24/14 01/13/24 History hydroCHLOROthiazide [Hydrodiuril] 25 mg PO DAILY 02/24/14 01/13/24 History Albuterol Inhaler [Ventolin Hfa 1 - 2 puff INHALATION RT-Q6H PRN 07/26/22 01/13/24 History Inhaler] Fluticasone/Umeclidin/Vilanter 1 puff INHALATION RT-DAILY 07/26/22 01/13/24 History [Trelegy Ellipta 100-62.5-25] HYDROcodone/APAP 5-325MG [[place] 1 tab PO Q6HR PRN 07/26/22 01/13/24 History 5-325] diphenhydrAMINE HCL [Benadryl] 50 mg PO Q6H PRN 07/26/22 01/13/24 History Ipratropium-Albuterol Nebulize 3 ml INHALATION RT-QID #120 each 07/30/22 01/13/24 Rx [Duoneb 0.5 mg-3 mg/3 ml Soln] Levothyroxine Sodium [Synthroid] 112 mcg PO DAILY@0630 01/13/24 01/13/24 History methocarbamoL 500 mg PO DIRECTED 01/13/24 01/13/24 History Allergies Allergy/AdvReac Type Severity Reaction Status Date / Time erythromycin base Allergy Unknown Verified 01/13/24 10:05 [Erythromycin Base] hydrocodone bitartrate Allergy Itching Verified 01/13/24 10:05 [From Vicodin] hydroxychloroquine Allergy Unknown Verified 01/13/24 10:05 [From Plaquenil] ibuprofen [From Motrin] Allergy Unknown Verified 01/13/24 10:05 naproxen Allergy Unknown Verified 01/13/24 10:05 nitrofurantoin Allergy Rash/Hives Verified 01/13/24 10:05 [From Macrobid] peach Allergy Unknown Verified 01/13/24 10:05 sulfamethoxazole Allergy Rash/Hives Verified 01/13/24 10:05 [From Bactrim] tomato Allergy Unknown Verified 01/13/24 10:05 trimethoprim [From Bactrim] Allergy Rash/Hives Verified 01/13/24 10:05 anti-inflamatories Allergy Unknown Uncoded 01/13/24 10:05 cantalope Allergy Unknown Uncoded 01/13/24 10:05 tape Allergy Unknown Uncoded 01/13/24 10:05 Physical Examination - Hip right Gait: antalgic Tenderness with palpation: anterior Pain with motion: internal rotation and hip flexion ROM: flexion: 80 degrees ROM: internal rotation: 0 degrees (With pain) ROM: external rotation: 60 degrees Strength: flexion: 5/5 Strength: abduction: 5/5 Strength: external rotation: 5/5 Tests: impingement tests: positive Results The patient is a well-developed well-nourished female proximally 5 foot 5, 161 pounds of mesomorphic habitus. HEENT exam is nonfocal, neck is supple. She has limited painful passive motion of the right hip. Straight leg raise is negative. Impingement test is positive. Clinically she has shortening of the right lower extremity compared to left. - Diagnostic results Hip x-ray: image reviewed (X-rays of the right hip obtained in the office shows severe osteoarthrosis with [id number] changes and subchondral sclerosis.) Assessment and Plan Assessment: Right hip severe osteoarthrosis Plan: I talked to the patient at length regarding her condition along with trigger options. At this point she is quite symptomatic secondary to right hip osteoarthrosis despite conservative measures. After a thorough discussion she opts to proceed with surgery. We'll plan to proceed with right total hip arthroplasty utilizing an anterior approach. Risks and benefits were discussed at length in layman's terms. We will institute DVT prophylaxis postoperatively.
[~2024-01-19 10:41] MED LIST: TRANEXAMIC 1,000 MG/100ML-NACL 1,000 MG in SALINE 1 100ML.BAG IVPB PRN
[2024-01-19] MEDS: ACETAMINOPHEN TAB 500 MG TAB PO PRN (11:28)
[2024-01-19] MEDS: IV FLUID CONTINUATION 1,000 ML IV ONE (11:39)
[2024-01-19] MEDS: DEXAMETHASONE SOD PHOSPHATE 4 MG/ML 1 ML VIAL IV ONE (11:41)
[2024-01-19] MEDS: ONDANSETRON 4 MG/2 ML VIAL IVP ONE (11:41)
[2024-01-19] MEDS: LACTATED RINGERS 1,000 ML IV SCH (11:42)
[2024-01-19] MEDS: fentaNYL (PF) 50 MCG/ML 2 ML AMP IV PRN (12:13)
[2024-01-19] MEDS: MIDAZOLAM 2 MG/2 ML VIAL IV ONE (12:13)
[2024-01-19] MEDS ORDERED: ROPIVACAINE 5 MG/ML 30 ML VIAL ONE (13:14)
[2024-01-19] MEDS ORDERED: SUCCINYLCHOLINE CHLORIDE 200 MG/10 ML VIAL IV ONE (13:14)
[2024-01-19] MEDS ORDERED: LIDOCAINE 1% INJ 10MG/ML (20 ML MDV) ONE (13:14)
[2024-01-19] MEDS ORDERED: ROCURONIUM 10 MG/ML (5 ML VIAL) IV ONE (13:14)
[2024-01-19] MEDS ORDERED: GLYCOPYRROLATE 0.2 MG/ML 2 ML VIAL ONE (13:14)
[2024-01-19] MEDS ORDERED: HYDROmorphone (PF) 1 MG/ML ONE (13:14)
[2024-01-19] MEDS ORDERED: NEOSTIGMINE 1 MG/ML 10 ML VIAL ONE (13:14)
[2024-01-19] MEDS ORDERED: PROPOFOL 10 MG/ML 20 ML VIAL IV ONE (13:14)
[2024-01-19] MEDS ORDERED: fentaNYL (PF) 50 MCG/ML 2 ML AMP ONE (13:14)
[2024-01-19] MEDS ORDERED: TRANEXAMIC 1,000 MG/100ML-NACL PREMIX BAG ONE (13:14)
[2024-01-19] MEDS: ceFAZolin 1,000 MG in SODIUM CHLORIDE 0.9% 1,000 ML IRRIGATION ONE (13:49)
--- NOTE | 2024-01-19 13:52 | P.ANPRN ---
Procedure Note - Anesthesia - Nerve Block Performed Right True Single Time Out Performed: Yes (1212) Date of Procedure: 01/19/24 Procedure Start Time: 12:13 Procedure Stop Time: 12:18 Location of Patient: PreOp Indication: Acute Post-Operative Pain, Requested by Surgeon Specifically requested for management of pain by DrVentura: Phi Rae Sedation Type: Sedate with meaningful contact maintained Preparation: Sterile Prep Position: Supine Catheter: None Needle Types: Pajunk Needle Gauge: 21 Ultrasound used to visualize needle placement: Yes Ultrasound used to observe medication spread: Yes Injectate: 0.5% Ropivacaine (see comment for volume) (30cc) Blood Aspirated: No Pain Paresthesia on Injection Noted: No Resistance on Injection: Normal Image Stored and Saved: Yes Events: Uneventful and Well Tolerated
[2024-01-19] MEDS: LACTATED RINGERS 1,000 ML IV ONE (14:34)
[2024-01-19] MEDS ORDERED: MAGNESIUM HYDROXIDE 2,400 MG/30 ML CUP PO PRN (15:17)
[2024-01-19] MEDS ORDERED: NALOXONE 0.4 MG/ML 1 ML VIAL IV PRN (15:17)
[2024-01-19] MEDS ORDERED: HYDROmorphone 0.5 MG/0.5 ML SYRINGE IVP PRN ×2 (15:17)
[2024-01-19] MEDS ORDERED: HYDROcodone/APAP 5-325MG 1 EACH TAB PO PRN (15:17)
--- NOTE | 2024-01-19 15:35 | P.OP ---
Date of Procedure: 01/19/24 Preoperative Diagnosis: Right hip severe osteoarthrosis Postoperative Diagnosis: Same Procedure(s) Performed: Right total hip arthroplastypress-fitanterior approach Implants: DePuy Corail size 11-125 degree standard offset collared press-fit femoral stem, 36+1.5 cobalt chrome femoral head, FT 4 mm Belva acetabular shell with neutral polyethylene liner. I did utilize a 6.5 mm x 25 mm cancellous screw. Anesthesia: GETA Surgeon: Phi Rae Custodial Engineer #1: Lewis Hudson Estimated Blood Loss (ml): 450 Pathology: none sent Condition: stable Disposition: PACU Indications for Procedure: The patient is a 68-year-old female who presents with progressive right hip pain secondary to osteoarthrosis despite conservative measures. A discussion of the risks and benefits of operative intervention versus continued conservative me asures was made with the patient. She opted to proceed with surgery. Operative risks include infection, neurovascular injury, fracture, development of blood clots, leg length discrepancy, possible component loosening/component failure, and possible need for subsequent procedures was discussed. Informed consent was obtained. Operative Findings: As below Description of Procedure: The patient was brought to the operating room, and after induction of spinal anesthesia was placed supine on the Anna table. Positioning was checked with fluoroscopy. The right hip was then prepped and draped in a normal fashion. A 12 cm incision was then made starting 2 fingerbreadths distal and 3 finger breaths posterior to the ASIS in line with the proximal femur. The skin was incised sharply. Subcutaneous tissues were divided sharply. Electrocautery was used for hemostasis. The fascia was split in line with skin incision. The interval between the sartorius and tensor fascia christa was then bluntly developed. The posterior fascia was opened with electrocautery. The lateral circumflex vessels were identified and cauterized prior to sectioning. A retractor was placed along the superior femoral neck as well as the anterior acetabular rim. A wide capsulotomy was performed. The neck cut was then made at a 45 angle to the shaft approximately 1 1/2 cm above the level of the lesser trochanter. The head was extracted. Attention was then paid towards preparing the acetabular. Anterior and posterior retractors were placed. The remaining capsular labral tissue sharply debrided clearly defining the acetabular margins. I began reaming with a 47 mm reamer taking care to initially medialize then reaming at 45 of abduction and 20 of anteversion. Sequential reaming is performed up to 53 mm. A trial 54 mm acetabular shell was inserted in the same orientation and was fully seated. There was good rim fit and stability. Positioning was checked with fluoroscopy. The final 54 mm acetabular shell was inserted again at 45 of abduction and 20 of anteversion. This was fully seated. There was good rim fit and stability. Again fluoroscopy was used to check the adequacy of placement. A neutral polyethylene liner was gently impacted. Care was taken to avoid any soft tissue interposition. Pulsatile lavage was utilized. Attention was then paid towards preparing the proximal femur. The central region was cleared of soft tissue. A canal finder was used to find the femoral canal. Sequential broaching was performed up to size 11 taking care to lateralize proximally. A calcar mill was used to fashion the medial calcar. There was good rotational stability. A 125 degree neck along with a 36 mm +1.5 head was placed. The hip was gently reduced. Fluoroscopy was used to check the adequacy of positioning along with leg lengths. I felt both were good. The hip was gently dislocated. The trial components were removed. The final size 11 collared 125 degree press-fit femoral stem was inserted parallel to the posterior cortex. This was fully seated and there was good rotational stability. A 36 mm +1.5 head was placed. This was gently impacted. The hip was then gently reduced. Final fluoroscopic view showed adequate placement implant along with yarsani of leg length. Stability was checked with 80 of external rotation and 60 of extension of the right hip. The wound was irrigated with sterile lavage. The fascia was closed with running 0 Vicryl suture. There was minimal drainage therefore a d eep drain was not placed. The second dose of IV TXA was given. The subcutaneous tissues were reapproximated interrupted 2-0 Vicryl sutures. The skin was reapproximated with 3-0 subcuticular strata fix suture. Skin tape and adhesive was applied. A sterile dressing was applied. The patient was then awoken from sedation and transferred to recovery room in good condition. Blood loss was estimated at 450 mL. No complications were incurred. Sponge and needle counts were correct at the end of the case. Lewis DIALLO assisted during the major components is case to include exposure, bone resection, implantation, and closure.
--- NOTE | 2024-01-19 15:52 | XR ---
EXAMINATION TYPE: XR Hip Limited RT DATE OF EXAM: 01/19/2024 COMPARISON: None HISTORY: Post replacement TECHNIQUE: AP right hip FINDINGS: There is a femoral prosthesis with acetabular component. Soft tissue postsurgical changes a re evident. No acute fractures are evident. IMPRESSION: 1. No acute fracture post right hip replacement. [facility], Workstation: [facility], 01/19/2024 3:50 PM
[2024-01-19] MEDS: ONDANSETRON 4 MG/2 ML VIAL IVP PRN (16:18)
[2024-01-19] MEDS: MORPHINE SULFATE 4 MG/ML SYRINGE IVP STA (16:29)
--- NOTE | 2024-01-19 16:39 | XR ---
Fluoroscopy INDICATION: Pain FINDINGS: Fluoroscopy time: 21 seconds. Total dose area product (DAP) in uGy*m?, mGy*cm? (or similar): 0.7364 Images obtained: 7. IMPRESSION: 1. Documentation of fluoroscopy. [facility], , 01/19/2024 4:37 PM
[2024-01-19] MEDS: SENNOSIDES-DOCUSATE SODIUM 1 EACH TAB PO SCH (21:34)
[2024-01-20] MEDS ORDERED: traMADol 50 MG TAB PO PRN (03:44)
[2024-01-20] MEDS: HYDROcodone/APAP 7.5-325MG 1 EACH TAB PO PRN (05:36)
[2024-01-20] MEDS: diphenhydrAMINE 25 MG CAP PO PRN (05:36)
[2024-01-20] MEDS: hydrOXYzine pamoate 25 MG CAP PO PRN (05:43)
[2024-01-20 07:49] VITALS: BP 121/75; RESP 16; TEMP 98.5
[2024-01-20] MEDS ORDERED: ALBUTEROL NEBULIZED 2.5 MG/3 ML INHALATION PRN (08:09)
[2024-01-20 09:07] LABS: Basophils # (A) 0.02 X 10*3/uL (0.00-0.10); Basophils % (A) 0.1 %; Eosinophils # (A) 0 X 10*3/uL (0.04-0.35); Eosinophils % (A) 0 %; HCT 33.4 % (37.2-46.3); HGB 11.1 g/dL (12.0-15.0); Lymphocytes # (A) 1.19 X 10*3/uL (0.90-5.00); Lymphocytes % (A) 8.8 %; MCH 29.1 pg (27.0-32.0); MCHC 33.2 g/dL (32.0-37.0); MCV 87.4 FL (80.0-97.0); Mean Platelet Volume 9.9 FL (9.5-12.2); Monocytes # (A) 0.86 X 10*3/uL (0.20-1.00); Monocytes % (A) 6.3 %; NRBC Per 100 WBC 0 X 10*3/uL (0.00-0.01); Neutrophils # (A) 11.43 X 10*3/uL (1.80-7.70); Neutrophils % (A) 84.4 %; Platelet Count 327 X 10*3/uL (140-440); RBC 3.82 X 10*6/uL (4.10-5.20); WBC 13.56 X 10*3/uL (4.50-10.00)
[2024-01-20] MEDS: hydroCHLOROthiazide 25 MG TAB PO SCH (10:07)
[2024-01-20] MEDS: RIVAROXABAN 10 MG TAB PO SCH (10:08)
--- NOTE | 2024-01-20 10:56 | P.DS ---
Providers Date of admission: 01/19/2024 Expected date of discharge: 01/20/24 Attending physician: Phi Rae Consults: 01/19/24 15:17 Consult Physician Routine Consulting Provider: Faheem Roberts Jr Consult Reason/Comments: medical management s/p direct anterior right total hip arthroplasty Do you want consulting provider notified?: Yes Primary care physician: Faheem Roberts Hospital Course: Date of admission: 01/19/2024 Date of discharge: 01/20/2024 Admission diagnosis: Right hip osteoarthritis Discharge diagnosis: same Attending physician: Dr. Rae Surgical procedures: Direct anterior right total hip arthroplasty Brief history: Patient is a 68-year-old female with a history of progressive primary right hip osteoarthritis. At this point patient has failed conservative treatment measures and has opted to proceed with a elective direct anterior right total hip arthroplasty. Hospital course: Details of patient's surgery can be found in operative report. Patient tolerated the procedure well and was subsequently transported to orthopedic floor. Patient's orthopeidc and medical care was provided daily. Patient had daily laboratory tests performed for evaluation of overall blood counts. Patient had daily physical therapy to include strengthening range of motion as well as education with walker ambulation. Patient was treated with Xarelto for their postoperative DVT prophylaxis during their inpatient stay. Patient was noted to have a relatively uneventful postoperative course. Patient reported satisfactory pain control with oral pain medications by postoperative day 1. Patient showed satisfactory progress with physical therapy. Patient moved steadily through the program and had no difficulty meeting the goals by postoperative day 1. Given patient's otherwise satisfactory course and having met physical therapy goals, plan is to discharge patient home with health services on postoperative day 1. Discharge condition/disposition: Patient will be discharged home with health services in stable condition. Discharge medications: Instructions are given on resumption of patient's normal daily medications per primary care recommendation, in addition patient will be prescribed [place] 7.5 mg/325 mg; senna; Eliquis 2.5 mg twice a day 2 weeks. Discharge instructions: 1. Wound care and infection precautions, keep incision dry and covered while showering, no lotions, creams, moisturizers. No soaking, tubs, pools, hottubs. Do not scrub over the incision. 2. Weight-bear as tolerated with walker / cane until follow-up. 3. Ice and elevate when necessary. Do not exceed 20 minutes per hour with ice pack. 4. Utilize compression sleeve until seen at first follow up appointment. 5. Visiting nursing care. 6. Home physical therapy. 7. Pain meds and anticoagulants per prescription. 8. Pain medication has potential to cause constipation. Increase oral fluid and fiber intake. Contact primary care provider if you have not had a bowel movement within 48 hours after discharge 9. No anti-inflammatory medication until discussed at first post operative visit, this including Motrin, Aleve, Mobic, Diclofenac. 10. Follow up in office at 2 weeks postop with Dennis Ewing PA-C / Lewis Hudson PA-C 11. Follow up with your primary care doctor 7-10 days after discharge. 12. Contact [facility] with any questions, . Assessment: Right hip osteoarthritis Procedures: Direct anterior right total hip arthroplasty Patient Condition at Discharge: Good Plan - Discharge Summary Discharge Rx Participant: No New Discharge Prescriptions: New Apixaban [Eliquis] 2.5 mg PO BID #60 tab HYDROcodone/APAP 7.5-325MG [[place] 7.5-325] 1 tab PO Q6HR PRN #28 tab PRN Reason: Pain Sennosides/Docusate Sodium [Senna Plus 8.6-50 mg Softgel] 1 each PO DAILY #20 capsule No Action hydroCHLOROthiazide [Hydrodiuril] 25 mg PO DAILY Omeprazole [PriLOSEC] 20 mg PO DAILY Fluticasone/Umeclidin/Vilanter [Trelegy Ellipta 100-62.5-25] 1 puff INHALATION RT-DAILY Albuterol Inhaler [Ventolin Hfa Inhaler] 1 - 2 puff INHALATION RT-Q6H PRN PRN Reason: Shortness Of Breath diphenhydrAMINE HCL [Benadryl] 50 mg PO Q6H PRN PRN Reason: if she takes norco HYDROcodone/APAP 5-325MG [[place] 5-325] 1 tab PO Q6HR PRN PRN Reason: Pain Ipratropium-Albuterol Nebulize [Duoneb 0.5 mg-3 mg/3 ml Soln] 3 ml INHALATION RT-QID #120 each Levothyroxine Sodium [Synthroid] 112 mcg PO DAILY@0630 methocarbamoL 500 mg PO DIRECTED Discharge Medication List Omeprazole [PriLOSEC] 20 mg PO DAILY 02/24/14 [History] hydroCHLOROthiazide [Hydrodiuril] 25 mg PO DAILY 02/24/14 [History] Albuterol Inhaler [Ventolin Hfa Inhaler] 1 - 2 puff INHALATION RT-Q6H PRN 07/26/22 [History] Fluticasone/Umeclidin/Vilanter [Trelegy Ellipta 100-62.5-25] 1 puff INHALATION RT-DAILY 07/26/22 [History] HYDROcodone/APAP 5-325MG [[place] 5-325] 1 tab PO Q6HR PRN 07/26/22 [History] diphenhydrAMINE HCL [Benadryl] 50 mg PO Q6H PRN 07/26/22 [History] Ipratropium-Albuterol Nebulize [Duoneb 0.5 mg-3 mg/3 ml Soln] 3 ml INHALATION RT-QID #120 each 07/30/22 [Rx] Levothyroxine Sodium [Synthroid] 112 mcg PO DAILY@0630 01/13/24 [History] methocarbamoL 500 mg PO DIRECTED 01/13/24 [History] Apixaban [Eliquis] 2.5 mg PO BID #60 tab 01/20/24 [Rx] HYDROcodone/APAP 7.5-325MG [[place] 7.5-325] 1 tab PO Q6HR PRN #28 tab 01/20/24 [Rx] Sennosides/Docusate Sodium [Senna Plus 8.6-50 mg Softgel] 1 each PO DAILY #20 capsule 01/20/24 [Rx] Follow up Appointment(s)/Referral(s): Lewis Hudson, JOSELUIS [PHYSICIAN AIRPORT MAINTENANCE LABORER] - 2 Weeks [facility] Visiting Nurse, [NON-STAFF] - 1-2 Days ([facility] will call you to schedule your in home nursing and physical therapy visits. ) Patient Instructions/Handouts: Anterior Hip Replacement (DC), Anterior Hip Replacement (GEN) Activity/Diet/Wound Care/Special Instructions: Orthopedic Discharge Instructions: 1. Wound care and infection precautions, keep incision dry and covered while showering, no lotions, creams, moisturizers. No soaking, pools, hot tubs. Do not scrub over incision. 2. Weight-bear as tolerated with walker / cane until follow-up. 3. Ice and elevate when necessary. Do not exceed 20 minutes per hour with ice pack. 4. Utilize compression sleeve until seen at first follow up appointment. 5. Pain meds and anticoagulants per prescription. 6. Pain medication has potential to cause constipation. Increase oral fluid and fiber intake. Contact primary care provider if you have not had a bowel movement within 48 hours after discharge. 7. No anti-inflammatory medication until discussed at first post operative visit, this including Motrin, Aleve, Mobic, Diclofenac. 8. Follow up in office at 2 weeks postop with Dennis Ewing PA-C / Lewis Hudson PA-C 9. Follow up with your primary care doctor 7-10 days after discharge. 10. Contact [facility] with any questions, . Keep incision clean, dry, intact. While showering, cover fusion tape with Saran wrap. Keep fusion tape on until follow-up appointment in office in 2 weeks. Discharge Disposition: HOME WITH HOME HEALTH SERVICES
--- NOTE | 2024-01-20 11:00 | P.PN ---
Subjective Progress Note Date: 01/20/24 Principal diagnosis: Right hip osteoarthritis Patient was seen at bedside this morning sitting up in chair dressing present over hip. Patient says she just finished with PT/OT and walked down the gotti and up-and-down stairs. Patient says she did do well and her pain has been co ntrolled with oral medication. She says she has urinated since surgery yesterday w/o issue. She says she has not had bowel movement yet, however, patient says she has been passing gas. Patient denies any other complaints at this time. Objective - Vital Signs Vital signs: Vital Signs Temp 98.5 F 01/20/24 07:48 Pulse 74 01/20/24 07:48 Resp 16 01/20/24 07:48 BP 121/75 01/20/24 07:48 Pulse Ox 93 L 01/20/24 07:48 FiO2 Intake & Output 01/19/24 01/20/24 01/20/24 18:59 06:59 18:59 Intake Total 1901 540 Output Total 450 600 Balance 1451 -60 Weight 72.6 kg Intake: IV 1701 Intake, IV Titration 200 Amount Lactated Ringers 1,000 ml 200 @ 20 mls/hr IV .Q24H BONY Rx#:[id number] Oral 540 Output: Urine 600 Estimated Blood Loss 450 Other: # Voids 2 - Exam Right hip: Incision is clean, dry, and intact. The exofin fusion tape is in good condition. There is minimal soft tissue swelling and ecchymosis surrounding the medial and lateral aspects of the incision. Calf is soft, no tenderness with palpation. Plantar flexion, dorsiflexion, EHL, FHL are intact. Sensory exam to light touch throughout the extremity is intact, dorsal pedis pulses 2+. - Labs CBC & Chem 7: 01/20/24 03:26 Labs: Abnormal Lab Results - Last 24 Hours (Table) 01/20/24 Range/Units 03:26 WBC 13.56 H (4.50-10.00) X 10*3/uL RBC 3.82 L (4.10-5.20) X 10*6/uL Hgb 11.1 L (12.0-15.0) g/dL Hct 33.4 L (37.2-46.3) % RDW 15.0 H (11.5-14.5) % Immature Gran # 0.06 H (0.00-0.04) X 10*3/uL Neutrophils # 11.43 H (1.80-7.70) X 10*3/uL Eosinophils # 0 L (0.04-0.35) X 10*3/uL Assessment and Plan Assessment: 1. Right hip osteoarthritis - Postop day 1 status post direct anterior right total hip arthroplasty Plan: 1. Right hip osteoarthritis - direct anterior right total hip arthroplasty performed yesterday, 01/18/2025. Patient stable at bedside this morning. Patient to do well with therapy. Prescription for walker was signed. Discharge home today with health services. 2. Appreciate medical management 3. Pain management - [place] 4. DVT prophylaxis -Xarelto in hospital. Going home with Eliquis 2.5 mg twice a day 2 weeks 5. GI prophylaxis - senna 6. PT/OT - weightbearing as tolerated with walker 7. Encourage incentive spirometer use 8. Discharge planning - home today with health services Time with Patient: Less than 30
[2024-01-20] MEDS: Trelegy Ellipta (fluticasone 100 mcg/umeclidinium 62.5 cmg/vilanterol 25 mcg) INHALATION SCH (11:05)
[2024-01-20] MEDS: ALBUTEROL NEBULIZED 2.5 MG/3 ML INHALATION SCH (11:10)
[2024-01-20] MEDS: SYMBICORT 80-4.5 MCG INHALER INHALATION SCH (11:11)
[2024-01-20] MEDS: PANTOPRAZOLE 40 MG TABLET PO SCH (11:12)
[2024-01-20] MEDS ORDERED: IPRATROPIUM-ALBUTEROL 3 ML NEB INHALATION SCH (12:00)
--- NOTE | 2024-01-20 13:36 | P.CONS ---
History of Present Illness - Reason for Consult Consult date: 01/20/24 Medical management COPD, asthma, nicotine dependent Requesting physician: Phi Rae - Chief Complaint Status post right hip surgical repair - History of Present Illness This is a 68-year-old female with past medical history significant for nicotine dependence, COPD, asthma, hypertension and multiple other medical issues status post right total hip anterior arthroplasty secondary to right hip osteoarthritis. Tolerated procedure well. Ambulating, tolerating exertion well. Completed steps with PT. pain controlled. Denies chest pain, palpitations or shortness of breath. Maintaining O2 sats in the 90s on room air. Afebrile WBC 13.56. Blood sugars elevated, hemoglobin A1c ordered. Denies nausea, vomiting or diarrhea. Passing flatus. Review of Systems Constitutional: Denied any fatigue denied any fever. Cardio vascular: denied any chest pain, palpitations Gastrointestinal denied any nausea vomiting Pulmonary: Denied any shortness of breath cough Neurologic denied any new focal deficits ROS Statement: Those systems with pertinent positive or pertinent negative responses have been documented in the HPI. ROS Other: All systems not noted in ROS Statement are negative. Past Medical History Past Medical History: Asthma, COPD, GERD/Reflux, Hypertension, Thyroid Disorder History of Any Multi-Drug Resistant Organisms: None Reported Past Surgical History: Section, Orthopedic Surgery, Tubal Ligation Additional Past Surgical History / Comment(s): neck surgery C5-C6, lft knee arthroscopy lateral release then had surgery for knee cap, left shoulder, sinus sx x2, rt wrist Past Anesthesia/Blood Transfusion Reactions: Postoperative Nausea & Vomiting (PONV) Past Psychological History: No Psychological Hx Reported Smoking Status: Current every day smoker Past Alcohol Use History: Rare Additional Past Alcohol Use History / Comment(s): down to 5- 10 cigarettes per day Past Drug Use History: None Reported - Past Family History Mother Family Medical History: COPD Medications and Allergies Home Medications Medication Instructions Recorded Confirmed Type Omeprazole [PriLOSEC] 20 mg PO DAILY 02/24/14 01/19/24 History hydroCHLOROthiazide [Hydrodiuril] 25 mg PO DAILY 02/24/14 01/19/24 History Albuterol Inhaler [Ventolin Hfa 1 - 2 puff INHALATION RT-Q6H PRN 07/26/22 01/19/24 History Inhaler] Fluticasone/Umeclidin/Vilanter 1 puff INHALATION RT-DAILY 07/26/22 01/19/24 History [Trelegy Ellipta 100-62.5-25] HYDROcodone/APAP 5-325MG [Gepp 1 tab PO Q6HR PRN 07/26/22 01/19/24 History 5-325] diphenhydrAMINE HCL [Benadryl] 50 mg PO Q6H PRN 07/26/22 01/19/24 History Ipratropium-Albuterol Nebulize 3 ml INHALATION RT-QID #120 each 07/30/22 01/19/24 Rx [Duoneb 0.5 mg-3 mg/3 ml Soln] Levothyroxine Sodium [Synthroid] 112 mcg PO DAILY@0630 01/13/24 01/19/24 History methocarbamoL 500 mg PO DIRECTED 01/13/24 01/19/24 History Apixaban [Eliquis] 2.5 mg PO BID #60 tab 01/20/24 Rx HYDROcodone/APAP 7.5-325MG [Gepp 1 tab PO Q6HR PRN #28 tab 01/20/24 Rx 7.5-325] Sennosides/Docusate Sodium [Senna 1 each PO DAILY #20 capsule 01/20/24 Rx Plus 8.6-50 mg Softgel] Allergies Allergy/AdvReac Type Severity Reaction Status Date / Time erythromycin base Allergy Unknown Verified 01/19/24 11:03 [Erythromycin Base] hydrocodone bitartrate Allergy Itching Verified 01/19/24 11:03 [From Vicodin] hydroxychloroquine Allergy Unknown Verified 01/19/24 11:03 [From Plaquenil] ibuprofen [From Motrin] Allergy Unknown Verified 01/19/24 11:03 naproxen Allergy Unknown Verified 01/19/24 11:03 nitrofurantoin Allergy Rash/Hives Verified 01/19/24 11:03 [From Macrobid] peach Allergy Unknown Verified 01/19/24 11:03 sulfamethoxazole Allergy Rash/Hives Verified 01/19/24 11:03 [From Bactrim] tomato Allergy Unknown Verified 01/19/24 11:03 trimethoprim [From Bactrim] Allergy Rash/Hives Verified 01/19/24 11:03 anti-inflamatories Allergy Unknown Uncoded 01/19/24 11:03 cantalope Allergy Unknown Uncoded 01/19/24 11:03 tape Allergy Unknown Uncoded 01/19/24 11:03 Physical Exam Vitals: Vital Signs Temp Pulse Resp BP Pulse Ox 01/20/24 07:48 98.5 F 74 16 121/75 93 L 01/20/24 00:24 98.0 F 79 17 115/72 96 01/19/24 19:32 97.5 F L 88 17 112/74 96 01/19/24 16:58 88 18 140/73 93 L 01/19/24 16:43 90 16 146/80 94 L 01/19/24 16:28 84 16 144/76 94 L 01/19/24 16:12 89 16 150/73 97 01/19/24 15:57 85 16 166/79 100 01/19/24 15:42 84 16 170/82 100 01/19/24 15:27 97.6 F 88 16 191/89 100 Intake and Output 01/19/24 01/20/24 01/20/24 22:59 06:59 14:59 Intake Total 750 540 Output Total 600 Balance 750 -60 Intake: IV 550 Intake, IV Titration 200 Amount Lactated Ringers 1,000 ml 200 @ 20 mls/hr IV .Q24H BONY Rx#:[id number] Oral 540 Output: Urine 600 Other: # Voids 2 Weight 72.6 kg GENERAL: Vital signs reviewed, alert and oriented x 3, sitting up in bed, no acute distress HEAD: Atraumatic, normocephalic. EYES: Pupils equal round and reactive to light, extraocular movements intact, sclera anicteric, conjunctiva are normal. ENT:nares patent, oropharynx clear without exudates. Moist mucous membranes. NECK: Normal range of motion, supple without lymphadenopathy or JVD, no thyromegaly LUNGS unlabored, equal air entry, bilateral bases diminished HEART: Regular rate and rhythm without murmurs, rubs or gallops.S1S2 Normal ABDOMEN: Soft, nontender, normoactive bowel sounds. No guarding, no rebound. No masses appreciated. EXTREMITIES: Right lower extremity dressing clean dry and intact, minimal edema, no calf tenderness, positive DP pulse NEUROLOGICAL: Cranial nerves II through XII grossly intact. SKIN: Warm, Dry, normal turgor, no rashes noted. Results CBC & Chem 7: 01/20/24 03:26 Labs: Abnormal Lab Results - Last 24 Hours (Table) 01/20/24 Range/Units 03:26 WBC 13.56 H (4.50-10.00) X 10*3/uL RBC 3.82 L (4.10-5.20) X 10*6/uL Hgb 11.1 L (12.0-15.0) g/dL Hct 33.4 L (37.2-46.3) % RDW 15.0 H (11.5-14.5) % Immature Gran # 0.06 H (0.00-0.04) X 10*3/uL Neutrophils # 11.43 H (1.80-7.70) X 10*3/uL Eosinophils # 0 L (0.04-0.35) X 10*3/uL Assessment and Plan Assessment: Right hip osteoarthritis, status post right total hip arthroplasty, direct anterior Postoperative atelectasis, expected outcome Ongoing nicotine dependence Gastroesophageal reflux disease Hypertension COPD, stable Asthma, seasonal allergies, stable Hyperglycemia, hemoglobin A1c ordered results to be faxed to PCP. Plan: Continue on current medication resume ,monitoring and symptomatic treatment. Aggressive pulmonary toileting with incentive spirometer and smoking sensation reinforced. Declined nicotine patch. Pain management, DVT prophylaxis as per primary. PT. discharge planning in progress as per orthopedic surgery. Follow-up with Dr. Roberts within 1 week. Thank you for the consult. The impression and plan of care has been dictated as directed. : I performed a history and examination of this patient, discussed the same with the dictator. I agree with the dictator's note ,documented as a scribe. Any additional findings or plans will be noted.
[2024-01-20 14:34] VITALS: PULSE 98
[2024-01-21] MEDS ORDERED: LEVOTHYROXINE 112 MCG TAB PO SCH (06:30)
--- NOTE | 2024-01-21 06:40 | FL ---
Fluoroscopy INDICATION: Pain FINDINGS: Fluoroscopy time: 21 seconds. Total dose area product (DAP) in uGy*m?, mGy*cm? (or similar): 0.7364 Images obtained: 7. IMPRESSION: 1. Documentation of fluoroscopy. [facility], , 01/21/2024 6:37 AM
== END 2024-01-20 15:35 | disposition home health service (06) ==
LOC: OR 10:41 → 4SSUR 15:23 → OR 01-20 15:35
PROVIDERS: ATTEND Orthopaedic Surgery
DX: M16.11 Unilateral primary osteoarthritis, right hip (principal); J44.9 Chronic obstructive pulmonary disease, unspecified; K21.9 Gastro-esophageal reflux disease without esophagitis; I10 Essential (primary) hypertension; F17.210 Nicotine dependence, cigarettes, uncomplicated; E03.9 Hypothyroidism, unspecified; R73.9 Hyperglycemia, unspecified; Z79.899 Other long term (current) drug therapy; Z79.890 Hormone replacement therapy; Z88.1 Allergy status to other antibiotic agents; Z88.5 Allergy status to narcotic agent; Z91.018 Allergy to other foods; Z91.09 Other allergy status, other than to drugs and biological substances; Z88.2 Allergy status to sulfonamides; Z86.16 Personal history of COVID-19
CPT/HCPCS: 27130; 97161; 97166; 64999; 85025; 83036; 73501; C1776; J2250; J0330; J2270; J1100; J2710; J0690 ×3; J2405; J2001; J3010; J1170; J2795; J2704; J1596; 64447